=== PATIENT | female | born 1935 | race Caucasian/White ===

== ENCOUNTER 2022-11-28 09:30 | Outpatient (OUT) | payer MEDICARE, SELFPAY ==
[2022-11-28 10:10] LABS: Basophils Percent Auto 0.3 % (0.2-2.0); Eosinophils Absolute Auto 0.2 10^3/uL (0.0-0.7); Eosinophils Percent Auto 2.8 % (0.9-7.0); Hematocrit 35.9 % (36.0-48.0); Hemoglobin 11.9 g/dL (12.0-16.0); Immature Granulocytes Abs Auto 0.02 10^3/uL (0.00-0.03); Immature Granulocytes Pct Auto 0.3 % (0.0-0.5); Lymphocytes Absolute Auto 1.3 10^3/uL (1.2-3.8); Lymphocytes Percent Auto 17.8 % (20.5-60.0); Mean Corpuscular HGB Conc 33.1 g/dL (29.9-35.2); Mean Corpuscular Hemoglobin 30.7 pg (26.7-34.0); Mean Corpuscular Volume 92.8 fL (81.0-99.0); Monocytes Absolute Auto 0.5 10^3/uL (0.3-0.8); Monocytes Percent Auto 6.9 % (1.7-12.0); Neutrophils Absolute Auto 5.1 10^3/uL (1.4-6.5); Neutrophils Percent Auto 71.9 % (43.0-75.0); Platelet Count 300 10^3/uL (150-450); Red Blood Count 3.87 10^6/uL (4.20-5.40); White Blood Count 7.1 10^3/uL (4.0-11.0)
[2022-11-28 10:28] LABS: Anion Gap 15.4; BUN Creatinine Ratio 18.1; Calcium 8.2 mg/dL (8.5-10.1); Chloride 102 mmol/L (98-107); Cholesterol 210 mg/dL (<=200); Estimated GFR (African America 60 (>=60); Estimated GFR (Non-African Ame 50 (>=60); Glucose 111 mg/dL (74-106); HDL Cholesterol 40 mg/dL (40-60); Potassium 4.4 mmol/L (3.5-5.1); Sodium 140 mmol/L (136-145); Triglycerides 170 mg/dL (<=150)
[2022-11-28 10:50] LABS: Chol HDL Ratio 5.3
== END 2022-11-28 09:31 | disposition home or self-care (01) ==
LOC: LAB 09:34
PROVIDERS: PCP Internal Medicine; Visit Provider Internal Medicine
DX: E78.00 Pure hypercholesterolemia, unspecified (principal); D51.0 Vitamin B12 deficiency anemia due to intrinsic factor deficiency; E20.0 Idiopathic hypoparathyroidism; E55.9 Vitamin D deficiency, unspecified
CPT/HCPCS: 36415; 80048; 80061; 82306; 85025

== ENCOUNTER 2023-01-08 12:49 | Outpatient (RCR) | payer MEDICARE, SELFPAY | END 2023-01-21 16:30 | disposition home or self-care (01) | LOC: PT 12:49 | PROVIDERS: PCP Internal Medicine | DX: M76.892 Other specified enthesopathies of left lower limb, excluding foot (principal); S76.019D Strain of muscle, fascia and tendon of unspecified hip, subsequent encounter | CPT/HCPCS: 97110; 97112; 97163 ==

== ENCOUNTER 2023-01-20 13:18 | Outpatient (OUT) | payer MEDICARE, SELFPAY ==
[2023-01-20 13:49] LABS: Basophils Percent Auto 0.5 % (0.2-2.0); Eosinophils Absolute Auto 0.1 10^3/uL (0.0-0.7); Eosinophils Percent Auto 1.7 % (0.9-7.0); Hematocrit 35.6 % (36.0-48.0); Hemoglobin 11.9 g/dL (12.0-16.0); Immature Granulocytes Abs Auto 0.02 10^3/uL (0.00-0.03); Immature Granulocytes Pct Auto 0.3 % (0.0-0.5); Lymphocytes Absolute Auto 1.5 10^3/uL (1.2-3.8); Lymphocytes Percent Auto 19.4 % (20.5-60.0); Mean Corpuscular HGB Conc 33.4 g/dL (29.9-35.2); Mean Corpuscular Hemoglobin 30.8 pg (26.7-34.0); Mean Corpuscular Volume 92.2 fL (81.0-99.0); Mean Platelet Volume 10.3 fL (9.5-13.5); Monocytes Absolute Auto 0.5 10^3/uL (0.3-0.8); Monocytes Percent Auto 6.3 % (1.7-12.0); Neutrophils Absolute Auto 5.5 10^3/uL (1.4-6.5); Neutrophils Percent Auto 71.8 % (43.0-75.0); Platelet Count 277 10^3/uL (150-450); Red Blood Count 3.86 10^6/uL (4.20-5.40); Red Cell Distribution Width 13.2 % (11.0-15.0); White Blood Count 7.6 10^3/uL (4.0-11.0)
[2023-01-20 13:58] LABS: Anion Gap 12.3; BUN Creatinine Ratio 28.6; Calcium 7.8 mg/dL (8.5-10.1); Carbon Dioxide 27.9 mmol/L (21.0-32.0); Chloride 104 mmol/L (98-107); Estimated GFR (African America 56 (>=60); Estimated GFR (Non-African Ame 46 (>=60); Glucose 121 mg/dL (74-106); Potassium 4.2 mmol/L (3.5-5.1); Sodium 140 mmol/L (136-145)
== END 2023-01-20 13:19 | disposition home or self-care (01) ==
LOC: LAB 13:19
PROVIDERS: PCP Internal Medicine; Visit Provider Internal Medicine
DX: D51.0 Vitamin B12 deficiency anemia due to intrinsic factor deficiency (principal)
CPT/HCPCS: 36415; 80048; 85025

== ENCOUNTER 2023-03-19 13:56 | Outpatient (REF) | payer MEDICARE, SELFPAY ==
[2023-03-19 14:24] LABS: SARS-CoV-2 Ag NEGATIVE (NEGATIVE)
[2023-03-19 15:51] LABS: SARS-CoV-2 NAA NOT DETECTED (NOT DETECTE)
== END 2023-03-19 13:57 | disposition home or self-care (01) ==
LOC: LAB 13:56
PROVIDERS: PCP Internal Medicine; Visit Provider Internal Medicine
DX: Z20.822 Contact with and (suspected) exposure to COVID-19 (principal)
CPT/HCPCS: 87635; 87811

== ENCOUNTER 2023-10-01 09:15 | Outpatient (OUT) | payer OTHER, SELFPAY ==
--- OUTSIDE RECORDS SUMMARY | 2023-10-01 09:45 | XMS_ITS | CCD ---
Author Organization [facility] Care Team Providers Care Life Skills Coach Name Role Phone Angelica Messer Primary Care Provider [phone] Wilbur Baldwin MD Unavailable [phone] Wilbur Baldwin MD Unavailable Jorge Moon MD Unavailable ARSLAN BERG Primary Care Physician Bouchra, Charlotte Y Referring Unavailable Bouchra, Charlotte Y Attending Unavailable Bouchra, Charlotte Y Admitting Unavailable Angelica Messer Primary Care Provider [phone] Wilbur Baldwin MD Unavailable Wilbur Baldwin MD Unavailable Jorge Moon MD Unavailable Arslan Berg DO E Unavailable [phone] MORENA, DR PANIAGUA Admitting Unavailable BALL, DR PANIAGUA Attending Unavailable BALL, DR PANIAGUA Primary Care Unavailable BALL, DR PANIAGUA Admitting Unavailable BALL, DR PANIAGUA Attending Unavailable BALL, DR PANIAGUA Primary Care Unavailable BALL, DR PANIAGUA Consulting Unavailable LE, EDUARDO Consulting Unavailable BALL, DR PANIAGUA Admitting Unavailable BALL, DR PANIAGUA Attending Unavailable BALL, DR PANIAGUA Primary Care Unavailable BALL, DR PANIAGUA Consulting Unavailable Morena, Arslan Unavailable Angelica Messer Primary Care Provider [phone] Wilbur Baldwin MD Unavailable [phone] Wilbur Baldwin MD Unavailable Red SMALL, Jorge Abreu Unavailable [phone] Arslan Berg DO E Unavailable Angelica Messer Primary Care Provider [phone] ANGELICA MESSER Primary Care Unavailable ANGELICA MESSER Referring Unavailable BARBARA BLACKBURN Attending Unavailable ANGELICA MESSER Primary Care Unavailable RICK MCKINNEY Referring Unavailable ANGELICA MESSER Primary Care Unavailable RICK MCKINNEY Attending Unavailable ANGELICA MESSER Primary Care Unavailable ANGELICA MESSER Primary Care Unavailable BARBARA BLACKBURN Referring Unavailable Jorge Moon MD Unavailable [phone] Arslan Berg Attending Unavailable Arslan Berg Primary Care Unavailable Arslan Berg Admitting Unavailable TROY PANTOJA Attending Unavailable Allergies Allergy Classification Reported Allergen(s) Allergy Type Date of Onset Reaction(s) Facility (14 sources) bacitracin / neomycin / polymyxin b; Translations: [bacitracin/neom ycin/polymyxin B topical] Drug Allergy 12-05-19 19 Unknown [facility] (15 sources) Formaldehyde; Translations: [formaldehyde topical] Drug Allergy 08-03-19 16 Other: See Comments [facility] (13 sources) rosuvastatin; Translations: [ROSUVASTATIN CALCIUM] Drug Allergy 10-22-19 14 Other: See Comments [facility] (14 sources) Sulfonamides (Antibiotic); Translations: [SULFA (SULFONAMIDE ANTIBIOTICS)] Propensity to adverse reactions 02-25-20 03 Hallucinating [facility] (13 sources) Quaternium; Translations: [QUATERNIUM] Drug Intolerance 10-13-19 08 Other: See Comments [facility] (2 sources) Sulfamethoxazole ; Translations: [sulfamethoxazol e] Drug Allergy unknown [facility] (2 sources) quartiam; Translations: [quartiam] Drug allergy rash [facility] (1 source) Bacitracin / Neomycin / Polymyxin B; Translations: [Neosporin] Drug Allergy [facility] (1 source) Sulfonamides (Antibiotic) Drug allergy (disorder) [facility] (11 sources) Sulfacetamide Drug Allergy 09-02-19 out of it [facility] (1 source) Sulfacetamide Drug Allergy 09-02-19 [facility] (1 source) Sulfonamides (Antibiotic) Drug allergy (disorder) 09-02-19 [facility] Medications Current Medications Medication Drug Class(es) Dates Sig (Normalized) Sig (Original) amLODIPine 5 mg oral tablet (1 source) Dihydropyridine Calcium Channel Jodie Start: 09-02-2023 take 5 mg by mouth once daily Amlodipine Active 5 MG PO Daily September 02, 2023 12:00am ascorbic acid 113 mg / copper gluconate 0.4 mg / docosahexaenoic acid 87.5 mg / eicosapentaenoic acid 163 mg / lutein 2.5 mg / tocopherol acetate 100 unt / zeaxanthin 0.5 mg / zinc oxide 17.4 mg oral capsule (9 sources) Vitamin C PreserVision AREDS 2 - as directed Orally Active azithromycin 250 mg oral tablet (3 sources) Macrolide Antimicrobial Start: 03-19-2023 Azithromycin 250 MG as directed Orally daily for 5 days Feb, Active Biotin (11 sources) biotin 5,000 mcg subl Dissolve under the tongue. 0 Active Comment on above: Dissolve under the t ongue. calcitriol 0.0005 mg oral capsule (20 sources) Vitamin D3 Analog Start: 08-30-2023 take 0.5 ug by mouth once daily Calcitriol Active 0.5 MCG PO Daily August 30, 2023 12:00am Start: 12-07-2020 End: 03-24-2023 take 1 capsule by mouth once daily calcitriol (ROCALTROL) 0.5 mcg capsule Indications: Surgical hypoparathyroidism (HCC) take 1 capsule by mouth once daily 90 capsule 3 03/24/2023 Active Start: 06-26-2017 End: 08-30-2023 take 0.5 mg by mouth twice daily Calcitriol Discontinued 0.5 MG PO Twice daily June 26, 2017 1:00am August 30, 2023 9:48am Start: 06-16-2017 calcitriol 0.5 mcg oral capsule 0.5 microgram = 1 cap(s), Oral, Daily, PRN Prophylaxis Start Date: 06/16/17 Status: Ordered Comment on above: Take 1 capsule by mo ut once daily. take 1 capsule by mo [facility] once daily Calcium (4 sources) Phosphate Binder, Calcium calcium carbonate 1500 mg oral tablet (9 sources) Start: 08-30-2023 take 600 mg by mouth twice daily Calcium Carbonate Active 600 MG PO Twice daily August 30, 2023 12:00am Start: 06-26-2017 End: 08-30-2023 take 1 tablet by mouth twice daily Calcium Carbonate (Calcium 500) 500 mg calcium (1,250 mg) Tablet Discontinued 500 MG PO Twice daily June 26, 2017 1:00am August 30, 2023 9:48am Start: 06-16-2017 calcium (as ca rbonate) 600 mg oral tablet 1,200 mg = 2 tab(s), Oral, Daily, PRN Prophylaxis Start Date: 06/16/17 Status: Ordered take 1 tablet by [facility] every twelve hours Calcium 600 MG 1 tablet with meals Orally Twice a day Active cefuroxime 250 mg oral tablet (1 source) Cephalosporin Antibacterial Start: 03-28-2023 take 1 tablet by mouth every twelve hours Cefuroxime Axetil 250 MG 1 tablet Orally every 12 hrs for 7 days Mar, Active Centrum Silver (10 sources) Centrum Silver Active cetirizine hydrochloride 10 mg oral tablet (6 sources) Histamine-1 Receptor Antagonist Start: 08-30-2023 take 10 mg by mouth once daily Cetirizine Active 10 MG PO Daily August 30, 2023 12:00am Start: 01-24-2023 take 1 tablet by [facility] every twenty-four hours Cetirizine HCl 10 MG 1 tablet Orally Once a day for 30 days Jan, Active CoQ-10 (4 sources) fluticasone propionate 0.05 mg/actuat metered dose nasal spray (6 sources) Corticosteroid Start: 08-30-2023 Fluticasone Pr opionate Active 2 SPRAY INTRANASAL Daily August 30, 2023 12:00am Start: 01-24-2023 Fluticasone Pr opionate 50 MCG/ACT 2 sprays (1 spray in each nostril) Nasally Once a day for 30 days Jan, Active Garlic preparation (11 sources) Non-Standardized Food Allergenic Extract Garlic 1,000 mg cap Take by mouth. 0 Active Comment on above: Take by mouth. glucosamine sulfate 500 mg oral capsule (12 sources) Start: 08-30-2023 take 500 mg by mouth twice daily Glucosamine Sulfate Active 500 MG PO Twice daily August 30, 2023 12:00am Start: 01-12-2019 take 1 capsule by [facility] once daily glucosamine 500 mg Cap 500 mg = 1 cap(s), Oral, Daily, Refills(s) 0 Start Date: 8/20/19 Status: Ordered take 1 capsule by mo [facility] twice daily Glucosamine 500 MG 1 capsule with a meal Orally twice a day Active levocetirizine dihydrochloride 5 mg oral tablet (1 source) Histamine-1 Receptor Antagonist Start: 07-18-2023 take 5 mg by mouth once daily Levocetirizine Active 5 MG PO Daily July 18, 2023 1:00am levothyroxine sodium 0.1 mg oral tablet (20 sources) l-Thyroxine Start: 08-30-2023 take 100 ug by mouth once daily in the morning Levothyroxine Active 100 MCG PO Every morning August 30, 2023 12:00am Start: 06-26-2017 End: 08-30-2023 take 1 tablet by mouth once daily levothyroxine (SYNTHROID) 100 mcg tablet Indications: Postsurgical hypothyroidism Take 1 tablet by mouth once daily. 90 tablet 3 03/26/2022 Active Start: 06-16-2017 take 1 tablet by sondra once daily levothyroxine 100 mcg (0.1 mg) Tab 100 microgram = 1 tab(s), Oral, Daily, Thyroid Start Date: 06/16/17 Status: Ordered Comment on above: Take 1 tablet by sondra once daily. methylPREDNISolone 4 mg oral tablet (5 sources) Corticosteroid Start: 023 Medrol 4 MG as directed Orally as directed for 6 days Nov, Active mirtazapine 30 mg oral tablet (20 sources) Start: 024 take 30 mg by mouth once daily at bedtime Mirtazapine Active 30 MG PO Daily at bedtime September 02, 2023 12:00am Start: 07-18-2023 End: 09-02-2023 take 15 mg by mouth once daily at bedtime Mirtazapine Discontinued 15 MG PO Daily at bedtime August 30, 2023 12:00am September 02, 2023 11:39am Start: 01-24-2023 take 1 tablet by sondra every twenty-four hours Mirtazapine 15 MG 1 tablet at bedtime Orally Once a day Jan, Active Start: 10-12-2021 take 1 tablet by sondra once daily at bedtime mirtazapine (REMERON) 30 mg tablet TAKE 1 TABLET BY MOUTH EVERYDAY AT BEDTIME 0 10/12/2021 Active Comment on above: TAKE 1 TABLET BY SONDRA EVERYDAY AT BEDTIME Xz-Ylb-Le-Vit O-Tslwih-Ucedkvp (Preservision Areds 2 Plus Mv) 200 mcg-15 mcg- 5 mg-1 mg capsule (1 source) Start: 08-30-2023 take 1 capsule by mouth once Zg-Heo-Cf-Vit O-Hkyjmn-Waxtoxl (Preservision Areds 2 Plus Mv) 200 mcg-15 mcg- 5 mg-1 mg capsule Active CAP PO August 30, 2023 12:00am nabumetone 750 mg oral tablet (4 sources) Nonsteroidal Anti-inflammatory Drug [facility] 3 (1 source) [facility] 3 1000 MG (9 sources) take 1 capsule by mouth once shaheen ly [facility] 3 1000 MG 1 capsule Orally Once a day Active [facility]-3 Fatty Acids (1 source) Start: 08-30-2023 take 1000 mg by mouth once daily [facility]-3 Fatty Acids Active 1000 MG PO Daily August 30, 2023 12:00am omeprazole 40 mg delayed release oral capsule (10 sources) Proton Pump Inhibitor Start: 08-30-2023 take 40 mg by mouth once daily Omeprazole Active 40 MG PO Daily August 30, 2023 12:00am Start: 11-27-2022 take 1 capsule by [facility] once daily Omeprazole 40 MG 1 capsule 30 minutes before morning meal Orally Once a day Nov, Active red yeast rice 600 mg oral capsule (14 sources) Start: 08-30-2023 take 600 mg by mouth twice daily Red Yeast Rice Active 600 MG PO Twice daily August 30, 2023 12:00am Start: 11-25-2019 take 1 capsule by mo ut twice daily Red Yeast Rice Extract 600 mg cap Take 1 capsule by mouth twice daily. 0 11/25/2019 Active Start: 01-12-2019 take 2 capsules by [facility] once daily red yeast rice 600 mg oral capsule 1,200 mg = 2 cap(s), Oral, Daily, Refills(s) 0 Start Date: 01/12/19 Status: Ordered Comment on above: Take 1 capsule by mo [facility] twice daily. Red Yeast Rice (4 sources) Red Yeast Rice A ctive Red Yeast Rice 600 MG (6 sources) take 600 mg by mouth twice daily Red Yeast Rice 600 MG as directed Orally twice a day Active rosuvastatin calcium 20 mg oral tablet (1 source) HMG-CoA Reductase Inhibitor Start: 4 take 20 mg by mouth once daily Rosuvastatin Active 20 MG PO Daily September 02, 2023 12:00am traZODone hydrochloride 50 mg oral tablet (2 sources) Serotonin Reuptake Inhibitor Start: 3 take 1 tablet by mouth at bedtime traZODone HCl 50 MG 1 tablet Orally at bedtime for 30 days Nov, Active Vitamin C 250 mg oral tablet, chewable (1 source) Start: 8 take 2 tablets by mouth once daily as needed Vitamin C 250 mg oral tablet, chewable 500 mg = 2 tab(s), Chewed, Daily, PRN Prophylaxis Start Date: 06/16/17 Status: Ordered Completed/Discontinued Medications Medication Drug Class(es) Dates Sig (Normalized) Sig (Original) ascorbic acid 500 mg oral tablet (12 sources) Vitamin C Start: 04-01-2017 take 1 tablet by mouth twice daily at mealtime ascorbic acid, vitamin C, (VITAMIN C) 500 mg tablet Take 1 tablet by mouth twice daily with meals. 0 04/01/2017 Active Comment on above: Take 1 tablet by sondra th twice daily with meals. besifloxacin 6 mg/ml ophthalmic suspension (1 source) Quinolone Antimicrobial Start: 06-26-2017 End: 08-30-2023 take 1 drop(s) into the eye(s) once daily Besifloxacin Discontinued 1 DROPS OPHTHALMIC Daily June 26, 2017 1:00am August 30, 2023 9:48am Calcium Carbonate / vitamin D3 (12 sources) take 1 tablet by mouth twice daily CALCIUM CARBONATE/VITAMIN D3 (CALCIUM 600 + D ORAL) Take 1 tablet by mouth twice daily. 0 Active Comment on above: Take 1 tablet by sondra th twice daily. diclofenac sodium 1 mg/ml ophthalmic solution (1 source) Nonsteroidal Anti-inflammatory Drug Start: 06-26-2017 End: 08-30-2023 take 1 drop(s) into the eye(s) once daily Diclofenac Sodium Discontinued 1 DROPS OPHTHALMIC Daily June 26, 2017 1:00am August 30, 2023 9:48am GLUC RENAE/CHONDRO RENAE A/VIT C/MN (GLUCOSAMINE 1500 COMPLEX ORAL) (12 sources) GLUC RENAE/CHONDRO REANE A/VIT C/MN (GLUCOSAMINE 1500 COMPLEX ORAL) Take 1 tablet by mouth twice daily. 0 Active Comment on above: Take 1 tablet by sondra th twice daily. montelukast 10 mg oral tablet (16 sources) Leukotriene Receptor Antagonist Start: 10-12-2021 take 1 tablet by mouth once daily at bedtime montelukast (SINGULAIR) 10 mg tablet Take 10 mg by mouth daily at bedtime. 0 10/12/2021 Active Comment on above: Take 10 mg by mouth daily at bedtime. MULTIVITS,CA,MINERA LS/IRON/FA (ONE-A-DAY WOMENS FORMULA ORAL) (12 sources) take 1 tablet by mouth once daily MULTIVITS,CA,MINE RALS/IRON/FA (ONE-A-DAY WOMENS FORMULA ORAL) Take 1 tablet by mouth once daily. 0 Active Comment on above: Take 1 tablet by sondra th once daily. omega-3 fatty acids (SUPER OMEGA-3) 1,000 mg cap (12 sources) omega-3 fatty acids (SUPER OMEGA-3) 1,000 mg cap Take 2 g by mouth twice daily. 0 Active Comment on above: Take 2 g by mouth tw ice daily. Iupmw-4-ZYU-EPA-Fis h Oil (FISH OIL) 1,000 mg (120 mg-180 mg) cap (7 sources) take 1 capsule by mouth twice daily Vroot-6-LGJ-EPA-F kennedy Oil (FISH OIL) 1,000 mg (120 mg-180 mg) cap Take 2 g by mouth twice daily. 0 Active Comment on above: Take 2 g by mouth tw ice daily. Rkwvq-7-BQI-EPA-Fis h Oil 1,000 mg (120 mg-180 mg) cap (5 sources) take 1 capsule by mouth twice daily Tszxg-8-TMA-EPA-F kennedy Oil 1,000 mg (120 mg-180 mg) cap Take 2 g by mouth twice daily. 0 Active Comment on above: Take 2 g by mouth tw ice daily. prednisoLONE acetate 10 mg/ml ophthalmic suspension (1 source) Corticosteroid Start: 06-26-2017 End: 08-30-2023 take 1 drop(s) into the eye(s) once daily Prednisolone Acetate Discontinued 1 DROPS OPHTHALMIC Daily June 26, 2017 1:00am August 30, 2023 9:48am triamcinolone acetonide 40 mg/ml injectable suspension (20 sources) Corticosteroid Start: 12-14-2022 Kenalog-40 Nov, 40 mg Start: 11-19-2020 Start: 11-19-2020 JOHNY zapata Oct, 80 mg Start: 11-08-2018 Start: 11-08-2018 JOHNY - Sherrill castillo g Oct, 40 mg ubiquinol (12 sources) COQ10, UBIQUINOL , ORAL Take by mouth. 0 Active Comment on above: Take by mouth. vit C/E/Zn/coppr/lutein/zeax an (PRESERVISION AREDS-2 ORAL) (4 sources) vit C/E/Zn/coppr/lutein/zeax an (PRESERVISION AREDS-2 ORAL) Take by mouth. 0 Active Comment on above: Take by mouth. WALKER ROLLATOR SEAT WITH 6 WHEELS - RED (3 sources) Start: 11-20-2022 WALKER ROLLATOR SEAT WITH 6 WHEELS - RED Indications: Rupture of hip abductor tendon As needed to prevent fall 1 Each 0 11/20/2022 Active Comment on above: As needed to prevent fall Problems Active Problems Problem Classification Problem Date Documented Date Episodic/Chronic Acute bronchitis (1 source) Acute bronchitis due to other specified organisms Episodic Chronic kidney disease (14 sources) Chronic kidney disease stage 4; Translations: [Chronic kidney disease, stage 4 (severe)] Resolved: 2 Chronic Complications of surgical procedures or medical care (20 sources) Post-surgical hypoparathyroidism; Translations: [Postprocedural hypoparathyroidism] Onset: 9 Chronic Deficiency and other anemia (3 sources) Vitamin B12 deficiency anemia due to intrinsic factor deficiency; Translations: [VITAMIN B12 DEF ANEMIA DUE IF DEF] Onset: 2 Episodic Deficiency and other anemia (15 sources) Pernicious anemia; Translations: [Vitamin B12 deficiency anemia due to intrinsic factor deficiency] 08-30-2023 Episodic Disorders of lipid metabolism (20 sources) Hypercholesterolemia; Translations: [Pure hypercholesterolemia, unspecified] Onset: 4 Chronic Esophageal disorders (15 sources) Gastro-esophageal reflux disease with esophagitis; Translations: [Gastroesophageal reflux disease with esophagitis without hemorrhage] 08-30-2023 Chronic Essential hypertension (1 source) Essential (primary) hypertension; Translations: [Essential (primary) hypertension] Onset: 4 Chronic Heart valve disorders (2 sources) Cardiac murmur, unspecified; Translations: [CARDIAC MURMUR UNSPECIFIED] Onset: 3 Episodic Immunizations and screening for infectious disease (4 sources) Vaccination given; Translations: [Encounter for immunization] Episodic Malaise and fatigue (19 sources) Other fatigue; Translations: [Fatigue] Onset: 2 Episodic Miscellaneous mental health disorders (20 sources) Insomnia disorder related to another mental disorder; Translations: [Insomnia due to other mental disorder] Chronic Mood disorders (20 sources) Moderate recurrent major depression; Translations: [Major depressive disorder, recurrent, moderate] Chronic Nutritional deficiencies (11 sources) Vitamin D deficiency; Translations: [Vitamin D deficiency, unspecified] Chronic Osteoarthritis (20 sources) Osteoarthritis of left knee joint; Translations: [Unilateral primary osteoarthritis, left knee] Onset: 6 05-31-2015 Chronic Other circulatory disease (3 sources) Elevated blood-pressure reading, without diagnosis of hypertension; Translations: [Elevated blood pressure reading without diagnosis of hypertension] Episodic Other circulatory disease (1 source) Elevated blood-pressure reading without diagnosis of hypertension; Translations: [Elevated blood-pressure reading, without diagnosis of hypertension] 08-30-2023 Episodic Other connective tissue disease (2 sources) Presence of left artificial hip joint; Translations: [PRESENCE LEFT ARTIFICIAL HIP JOINT] Onset: 2 Chronic Other connective tissue disease (10 sources) History of total hip arthroplasty; Translations: [Presence of left artificial hip joint] Chronic Other connective tissue disease (10 sources) History of left hip replacement; Translations: [Presence of left artificial hip joint] Chronic Other connective tissue disease (10 sources) Trochanteric bursitis of left hip; Translations: [Trochanteric bursitis, left hip] Episodic Other diseases of veins and lymphatics (4 sources) Peripheral venous insufficiency; Translations: [Venous insufficiency (chronic) (peripheral)] Episodic Other endocrine disorders (11 sources) Idiopathic hypoparathyroidism; Translations: [Idiopathic hypoparathyroidism] 08-30-2023 Chronic Other endocrine disorders (2 sources) Idiopathic hypoparathyroidism Chronic Other endocrine disorders (1 source) Hypoparathyroidism; Translations: [Hypoparathyroidism, unspecified] 08-30-2023 Chronic Other endocrine disorders (1 source) Hypoparathyroidism, unspecified; Translations: [Hypoparathyroidism] 09-02-2023 Chronic Other fractures (1 source) Closed fracture of medial wall of acetabulum; Translations: [Nondisplaced fracture of medial wall of left acetabulum, subsequent encounter for fracture with routine healing] Episodic Other gastrointestinal disorders (1 source) Altered bowel function; Translations: [Other specified symptoms and signs involving the digestive system and abdomen] 06-27-2017 Episodic Other lower respiratory disease (5 sources) Other forms of dyspnea; Translations: [OTHER FORMS OF DYSPNEA] Onset: 3 Episodic Other nervous system disorders (1 source) Aphasia; Translations: [Aphasia] Onset: 4 Chronic Other nervous system disorders (11 sources) Antalgic gait; Translations: [Other abnormalities of gait and mobility] 08-30-2023 Episodic Other nervous system disorders (5 sources) Abnormal gait; Translations: [Unspecified abnormalities of gait and mobility] Episodic Other non-traumatic joint disorders (4 sources) Pain in left hip; Translations: [PAIN IN LEFT HIP] Onset: 2 Episodic Other non-traumatic joint disorders (14 sources) Arthralgia of the pelvic region and thigh; Translations: [Pain in left hip] Episodic Other upper respiratory disease (4 sources) Chronic rhinitis; Translations: [Chronic rhinitis] Chronic Other upper respiratory disease (6 sources) Vasomotor rhinitis; Translations: [Vasomotor rhinitis] 08-30-2023 Chronic Other upper respiratory disease (1 source) Vasomotor rhinitis Chronic Other upper respiratory infections (5 sources) Acute maxillary sinusitis; Translations: [Acute maxillary sinusitis, unspecified] Episodic Skin and subcutaneous tissue infections (10 sources) Cellulitis of hand; Translations: [Cellulitis of hand] Episodic Spondylosis; intervertebral disc disorders; other back problems (20 sources) Lumbar spondylosis; Translations: [Spondylosis without myelopathy or radiculopathy, lumbar region] Chronic Sprains and strains (1 source) Strain of muscle, fascia and tendon of unspecified hip, initial encounter; Translations: [Sprains and strains of unspecified site of hip and thigh] Episodic Superficial injury; contusion (10 sources) Abrasion and/or friction burn of hand without infection; Translations: [Cat scratch of hand] Episodic Thyroid disorders (20 sources) Autoimmune thyroiditis; 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] Onset: 2 Chronic Thyroid disorders (2 sources) Thyroid dysfunction; Translations: [Disorder of thyroid gland] 12-26-2011 Episodic Transient cerebral ischemia (1 source) Transient cerebral ischemic attack, unspecified; Translations: [Transient cerebral ischemic attack, unspecified] Onset: 4 Chronic Past or Other Problems Problem Classification Problem Date Documented Da te Episodic/Chronic Allergic reactions (12 sources) Contact dermatitis; Translations: [Unspecified contact dermatitis, unspecified cause] Onset: 02-16-2008 02-16-2008 Episodic Chronic kidney disease (3 sources) Chronic kidney disease Esophageal disorders (6 sources) Esophageal disorders; Translations: [Gastro-esophageal reflux disease with esophagitis, without bleeding] Joint disorders and dislocations; trauma-related (12 sources) Tear of medial meniscus of knee; Translations: [Tear of medial cartilage or meniscus of knee, current] Onset: 11-20-2011 11-20-2011 Episodic Nutritional deficiencies (12 sources) Cobalamin deficiency; Translations: [Deficiency of other specified B group vitamins] Onset: 12-04-2017 12-04-2017 Episodic Other aftercare (12 sources) Patient encounter status; Translations: [Encounter for therapeutic drug level monitoring] Onset: 03-19-2017 03-19-2017 Episodic Other connective tissue disease (1 source) Trochanteric bursitis, left hip; Translations: [TROCHANTERIC BURSITIS LEFT HIP] Onset: 03-04-2022 Episodic Other nervous system disorders (1 source) Unspecified abnormalities of gait and mobility; Translations: [UNS ABNORMALITIES GAIT AND MOBILITY] Onset: 03-06-2022 Episodic Other nervous system disorders (1 source) Other abnormalities of gait and mobility; Translations: [OTHER ABNORMALITIES GAIT AND MOBILITY] Onset: 03-06-2022 Episodic Other non-traumatic joint disorders (15 sources) Hip pain; Translations: [Pain in left hip] Onset: 05-31-2015 05-31-2015 Episodic Phlebitis; thrombophlebitis and thromboembolism (4 sources) History of thromboembolism of vein; Translations: [Personal history of other venous thrombosis and embolism] Onset: 05-26-2015 Episodic Results Test Name Value Interpretation Reference Range Facility US carotid doppler BIon 05-0 US carotid doppler [facility] [place] [address] Ultrasound Report Signed Patient: Rory Castellanos MR#: [id number] : 1935 Acct:[id number] Age/Sex: 88 / F ADM Date: 09/25/23 Loc: Room: Type[facility] Attending Dr: Arslan Berg DO Ordering Provider: Arslan Berg DO Date of Service: 09/25/23 US/US carotid doppler BI: R47.01 - Aphasia Copies to: Arslan Berg DO CAROTID DUPLEX INDICATION: A aphasia, possible TIA. PROCEDURE: Color-flow duplex scanning is used to interrogate the extracranial carotid arterial system, as well as both vertebral arteries. The proximal right internal carotid artery shows a highest peak systolic velocity of 80.8 cm/s with an end-diastolic velocity of 23.6 cm/s . The mid internal carotid artery measures 99.4 cm/s peak systolic with an end-diastolic velocity of 28 cm/s . The distal segment measures 87 cm/s peak systolic with an end diastolic velocity of 25.5 cm/s . The velocities of the right common carotid artery are 162 cm/s peak systolic and 22.5 cm/s end- diastolic proximally and 95.5 cm/s peak systolic and 16.5 cm/s end-diastolic distally. The peak systolic velocity ratio of the internal to the common carotid artery is 0.61 . The right external carotid artery measures 179 cm/s peak systolic. The right vertebral artery is patent at 61.9 cm/s peak systolic and with antegrade flow. The proximal left internal carotid artery shows a highest peak systolic velocity of 109 cm/s with an end-diastolic velocity of 31.1 cm/s . The mid internal carotid artery measures 123 cm/s peak systolic with an end-diastolic velocity of 30.1 cm/s . The distal segment measures 116 cm/s peak systolic with an end diastolic velocity of 37.8 cm/s . The velocities of the left common carotid artery are 121 cm/s peak systolic and 28.7 cm/s end-diastolic proximally and 104 cm/s peak systolic and 26.1 cm/s end-diastolic distally. The peak systolic velocity ratio of the internal to the common carotid artery is 1.02 . The left external carotid artery measures 146 cm/s peak systolic. The left vertebral artery is patent at 89.5 cm/s peak systolic with antegrade flow. US/US carotid doppler BI IMPRESSION: NO HEMODYNAMICALLY SIGNIFICANT STENOSIS OF EITHER EXTRACRANIAL INTERNAL CAROTID ARTERY. 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 Impression dictated by: Oscar Patterson MD09/26/2023 9:42 AM Dictation Location: [place] [address] Tech: Radha So Transcribed By: [facility] 09/26/23941 Dictated By: Oscar Patterson MD 09/26/23941 Signed By: 09/26/23941 Normal [facility] ECG 12 lead ECGon 09-25-2023 ECG 12 lead ECG [facility] Main [place] [id number] Electrocardiograph Report Signed Patient: Rory Castellanos MR#: [id number] : 1935 Acct:[id number] Age/Sex: 88 / F ADM Date: 09/25/23 Loc: Room: Type: [facility] Attending Dr: Arslan Berg DO Ordering Provider: Arslan Berg DO Date of Service: 09/25/2307/19/1322 ECG/ECG 12 lead ECG: R47.01 - Aphasia Copies to: Test Reason : Blood Pressure : / mmHG Vent. Rate : 077 BPM Atrial Rate : 077 BPM P-R Int : 176 ms QRS Dur : 082 ms QT Int : 392 ms P-R-T Axes : 078 -24 064 degrees QTc Int : 443 ms Normal sinus rhythm with sinus arrhythmia Normal ECG When compared with ECG of 26-FEB-2014 10:22, No significant change was found Confirmed by [facility] Doran ([id number]) on 09/25/2023 4:15:30 PM Referred By: Electronically Signed By:JJ FRANCIS MD FACC Transcribed By: MUS Signed By Jj Francis MD, FACC 09/25/23 1616 Normal [facility] ECH echo transthoracicon [facility] echo transthoracic [facility] Main [address] [address] Echocardiogram Signed Patient: Rory Castellanos MR#: [id number] : 1935 Acct:[id number] Age/Sex: 88 / F ADM Date: 09/25/23 Loc: UL Room: Type: [facility] Attending Dr: Arslan Berg DO Ordering Provider: Arslan Berg DO Date of Service: 09/25/2307/19/1322 ECH/ECH echo transthoracic: G45.9 - Transient cerebral ischemic attack, unspecified Copies to: DO Jj Joyner MD, [facility] Weight: 150 lb Performed By: RAMY Arguello BSA: 1.8 m2 BP: 151/74 mmHg HR: 74 Reason For Study: G45.9 - Transient cerebral ischemic attack, unspecified History: HTN, HLD Interpretation Summary Mild to moderate concentric left ventricular hypertrophy. Ejection Fraction = 60-65%. A variety of Doppler measurements indicate impaired left ventricular relaxation, which is associated with grade I/IV or mild diastolic dysfunction. No thrombus, vegetation or mass is seen. There is no prior echocardiogram noted for this patient. Procedure/Quality: A two-dimensional transthoracic echocardiogram with color flow and Doppler was performed. The study was technically good in quality. There is no prior echocardiogram noted for this patient. Left Ventricle: Mild to moderate concentric left ventricular hypertrophy. Left ventricular systolic function is normal. Ejection Fraction = 60-65%. A variety of Doppler measurements indicate impaired left ventricular relaxation, which is associated with grade I/IV or mild diastolic dysfunction. Left Atrium: The left atrium appears normal in size. The atrial septum appears normal. Right Atrium: The right atrium appears normal in size. Right Ventricle: The right ventricular size, thickness and function are normal. Aortic Valve: The aortic valve is trileaflet. The aortic valve is mildly sclerotic. Mitral Valve: The mitral valve is mildly sclerotic. Tricuspid Valve: The tricuspid valve is normal in structure. Pulmonic Valve: The pulmonic valve is not well seen, but is grossly normal. Arteries: The aortic root is normal size. Pericardium/Pleura: No pericardial effusion seen. There is no pleural effusion. IVC/Hepatic Veins: The IVC is normal in size with an inspiratory collapse of greater then 50%, suggesting normal right atrial pressure. Miscellaneous: No thrombus, vegetation or mass is seen. Measurements with Normals IVSd: 1.5 cm (0.7-1.1 cm)LVIDd: 3.5 cm (3.7-5.4 cm) LVPWd: 1.6 cm (0.7-1.1 cm)LVIDs: 2.5 cm (2.3-3.6 cm) LA dimension: 3.0 cm (2.3-4.0 cm)Ao root diam: 3.1 cm(2.0-3.6 cm) asc Aorta Diam: 3.0 cm(2.1-3.4cm) Doppler with Normals RVSP(TR): 29.0 mmHg (18-35mmHg) LV V1 max: 69.8 cm/sec (0.7-1.7m/s)MV E max gama: 74.7 cm/sec(0.8-1.3m/s) MV A max gama: 118.1 cm/sec(0.0-0.0m/s) MV E/A: 0.63 (<1.5) MMode/2D Measurements Calculations RVDd: 2.7 cm FS: 26.9 % Ao root area: LVOT diam: 2.0 cm TAPSE: 3.0 cm EDV(Teich): 7.5 cm2 LVOT area: 3.3 cm2 RV S Gama: 49.3 ml 18.3 cm/sec ESV(Teich): 22.9 ml EF(Teich): 53.5 % __ LVLd ap4: 6.3 cm SV(MOD-sp4): LAV(MOD-sp4): LA A2 area: 8.7 cm2 EDV(MOD-sp4): 26.3 ml 24.2 ml 38.3 ml LAV(MOD-sp2): LA A4 area: 12.3 cm2 LVLs ap4: 5.3 cm 19.0 ml LA length (vol): ESV(MOD-sp4): 4.6 cm 12.0 ml LA vol: 19.5 ml EF(MOD-sp4): 68.7 % LA vol index: 11.0 ml/m2 Doppler Measurements Calculations MV dec time: E/E' lat: 14.3 MV dec slope: Ao V2 max: 0.27 sec E/E' med: 10.7 143.6 cm/sec 280.0 cm/sec2 Ao max P.2 mmHg Ao mean P.6 mmHg Ao V2 mean: 100.2 cm/sec Ao V2 VTI: 29.1 cm DICK(I,D): 1.9 cm2 DICK(V,D): 1.6 cm2 __ AI max gama: LV V1 max PG: TV max P.0 mmHgTR max gama: 390.9 cm/sec 1.9 mmHg 244.9 cm/sec AI max P.1 mmHg LV V1 mean PG: TR max PG: AI dec slope: 1.2 mmHg 24.0 mmHg 300.9 cm/sec2 LV V1 mean: RAP systole: AI P1/2t: 380.5 msec 51.8 cm/sec 5.0 mmHg LV V1 VTI: 16.6 cm Measurements from QLAB BSA (): 1.8 m2 CI (): ED Mass (): LAEF (): 49.0 % 1.7 l/min/m2 119.0 grams __ SANTOS (): LAVmax (): LAVmin (): 24.0 mlPat Height (): 47.0 ml 168.0 cm 27.0 ml/m2 __ Pat Weight (): 68.0 kg QLAB Heart Model EDV ()_phl: 87.0 ml EF ()_phl: 52.0 % ED Current ()_phl: 60.0 % ESV ()_phl: 42.0 ml HR ()_phl: 66.0 BPMES Current ()_phl: 30.0 % LV Length ED ()_phl: 72.0 mmSV ()_phl: 45.0 ml ED Default ()_phl: 60.0 % LV Length ES ()_phl: 60.0 mm ES Default ()_phl: 30.0 % Transcribed By: SCV Performed At: 09/25/23 1347 Signed By: Jj Francis MD, [facility] 09/25/23 1755 Normal [facility] MR angio MR brain w/oon 05 MR angio MR brain w/o [facility] Main [place] [address] [place], [place] [id number] MRI Report Signed Patient: Rory Castellanos MR#: [id number] : 1935 Acct:[id number] Age/Sex: 88 / F ADM Date: 09/25/23 Loc: Room: Type: [facility] Attending Dr: Arslan Berg DO Copies to: Arslan Berg DO Ordering Provider: Arslan eBrg DO Date of Service: 09/25/23 MR/MR angio MR brain w/o: R47.01 - Aphasia MRI/MRA BRAIN WITHOUT CONTRAST CLINICAL DATA: Episodes of aphasia lasting approximately 20 minutes last month. Elevated cholesterol and hypertension. COMPARISON: CT brain 02/02/2016 Multiecho, multiplanar imaging of the brain was performed without contrast. 3-D nrsc-vy-iuvdep imaging of the tangirnaq of Cr was also performed. The axial source images were also reviewed. There is generalized atrophy, greatest at the cerebellum. The ventricles are within normal limits for size and position. There is mild patchy increased T2 and FLAIR signal involving the periventricular and subcortical white matter. This is probably chronic microvascular disease. There is susceptibility in the basal ganglia region and at the cerebellum on both sides correlating with physiologic calcifications on the previous CT study. There are no additional areas of abnormal signal elsewhere within the supra or infratentorial brain. There are no extra-axial collections or mass effect. No restricted diffusion is identified to suggest a recent ischemic event. There is minimal left maxillary mucosal thickening. Mastoid air cells are clear. The MRA images of the tangirnaq of Cr show a severely hypoplastic A1 segment on the right. The remaining vessels of the anterior and posterior circulation are patent. No focal stenosis or suspected thrombosis is noted. No aneurysms are identified. MR/MR angio MR brain w/o IMPRESSION: ATROPHY AND CHRONIC MICROVASCULAR DISEASE. NO ACUTE INTRACRANIAL FINDINGS. HYPOPLASTIC RIGHT A1 SEGMENT, WITHOUT OTHER SIGNIFICANT VASCULAR FINDINGS AT THE EKWOK OF CR. Impression dictated by: Leena Borges M.D.09/25/2023 4:19 PM Dictation Location: [place] [address] Transcribed By: [facility] 09/25/23 1619 Dictated By: Leena Borges MD 09/25/23 1609 Signed By: 09/25/23 1619 Normal [facility] Luis 01-06-2023 CNPN Telephone (4CQ) RORY CASTELLANOS ([id number]) 1935 F Date Time Provider Department 01/06/23 WILBUR BALDWIN 4CQ During your visit today, we recorded the following information about you: Elza Garcia 01/06/2023 9:17 AM Signed Rory Castellanos is calling Wilbur Baldwin MD today to request Results of her ultrasound of her hip. Patient asking for a return call as she is upset that the office has not contacted her. Patient states she needs follow up care and would like a call today with results and next steps for her plan of care. Patient has been identified by name and birthdate. Duration of symptoms: N/A Person calling: self Call patient at: on cell [phone] (home) [phone] (cell) Was an appointment scheduled: No Closing statement: Results or non-symptom based questions: Thank you for calling [facility], your call will be returned within the next business day. Regina Nj, ELVI 01/06/2023 3:30 PM Signed ORTHO CARE COORDINATION QUICK NOTE Patient has been identified by name and date of : yes Spoke with patient advising her ultrasound results. We discussed US result of Complete tear with retraction of the gluteus minimus tendon. Severe tendinosis of the gluteus medius tendon. Advised that physical therapy would be recommended to help strengthening the surrounding muscles. Advised no surgical intervention for this . She is looking ot do some therapy at [facility] and will contact our office with a fax number to forward this prescription to. Patient apprecative of call. Regina Verma RN Allergies As of Date: 01/06/2023 Noted Allergy Reaction QUATERNIUM 10/13/2007 14 - Other: See Comments Comments: ingredient in shampoos and hand creams severe open blisters/sores CRESTOR (ROSUVASTATIN CALCIUM) 10/21/2013 14 - Other: See Comments Comments: Sore throat and muscle symptoms per patient FORMALDEHYDE 08/03/2015 14 - Other: See Comments Comments: blisters and open sores [id number] 12/04/2018 16 - Unknown SULFA (SULFONAMIDE ANTIBIOTICS) 02/24/2003 Comments: ? per pt disoriented Date Reviewed: 11/20/2022 Reviewed by: Alea Krueger OCCA - Fully Assessed Reason for Visit: Results [95] Primary Visit Diagnosis:Tendonitis involving left hip abductors [M76.892] Other Visit Diagnosis:Rupture of hip abductor tendon [S76.019A] Order(s):CONSULT TO PHYSICAL THERAPY [9032] Order #: [id number]: 1 FUTURE Prescriptions as of 01/07/2023 - WALKER ROLLATOR SEAT WITH 6 WHEELS - RED As needed to prevent fall - vit C/E/Zn/coppr/lutein/ze axan (PRESERVISION AREDS-2 ORAL) Take by mouth. - levothyroxine (SYNTHROID) 100 mcg tablet Take 1 tablet by mouth once daily. - calcitriol (ROCALTROL) 0.5 mcg capsule Take 1 capsule by mouth once daily. - COQ10, UBIQUINOL, ORAL Take by mouth. - omega-3 fatty acids (SUPER OMEGA-3) 1,000 mg cap Take 2 g by mouth twice daily. - Bbzvu-0-MLI-EPA-Fish Oil 1,000 mg (120 mg-180 mg) cap Take 2 g by mouth twice daily. - montelukast (SINGULAIR) 10 mg tablet Take 10 mg by mouth daily at bedtime. - mirtazapine (REMERON) 30 mg tablet TAKE 1 TABLET BY MOUTH EVERYDAY AT BEDTIME - Red Yeast Rice Extract 600 mg cap Take 1 capsule by mouth twice daily. - ascorbic acid, vitamin C, (VITAMIN C) 500 mg tablet Take 1 tablet by mouth twice daily with meals. - CALCIUM CARBONATE/VITAMIN D3 (CALCIUM 600 + D ORAL) Take 1 tablet by mouth twice daily. - GLUC RENAE/CHONDRO RENAE A/VIT C/MN (GLUCOSAMINE 1500 COMPLEX ORAL) Take 1 tablet by mouth twice daily. - MULTIVITS,CA,MINERALS/ IRON/FA (ONE-A-DAY WOMENS FORMULA ORAL) Take 1 tablet by mouth once daily. 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] 09/03/2010 Tear of medial cartilage or meniscus of knee, c*11/20/2011 Pain in left hip [M25.552] 05/31/2015 Primary osteoarthritis of left knee [M17.12] 05/31/2015 Primary osteoarthritis of left hip [M16.12] 05/31/2015 OA (osteoarthritis) of hip [M16.9] 08/10/2015 Primary osteoarthritis of right hip [M16.11] 02/17/2017 Pre-op evaluation [Z01.818] 03/19/2017 Anticoagulation management encounter [Z51.81, Z*03/19/2017 Arthritis of right hip [M16.11] 03/31/2017 Vitamin B12 deficiency [E53.8] 12/04/2017 Encounter Status:Closed by REGINA VERMA on 01/07/23 [facility] HIP LTon 12-16-2022 US HIP LT * * *Final Report* * * DATE OF EXAM: Dec 16 2022 1:36PM YONY 1147 - US HIP LT / PROCEDURE REASON: Rupture of hip abductor tendon * * * * Physician Interpretation * * * * MSK_US LEFT LATERAL HIP ULTRASOUND: CLINICAL INFORMATION: History of bilateral total hip arthroplasties. Pain at the left hip. Rupture of hip abductor tendon TECHNIQUE: Díaz-scale real-time ultrasound of the lateral hip with dynamic imaging and power Doppler examination was performed. Images were saved to the permanent image archive. v2-20. COMPARISON: Left hip radiograph 11/20/2022 FINDINGS: GLUTEUS MINIMUS TENDON: Tendinosis: None Tearing: Complete tear with retraction. Power Doppler Examination: No increased signal. Osseous Changes: Normal appearance. GLUTEUS MEDIUS TENDON: Tendinosis: Severe Tearing: None. Power Doppler Examination: Severe associated hyperemia. Osseous Changes: Normal appearance. GLUTEUS MUSCULATURE: Bulk: Mild atrophy Echogenicity: Normal GREATER TROCHANTER BURSAE: No findings of bursitis. LATERAL JOINT SPACE: No significant joint effusion seen. ILIOTIBIAL BAND: Intact appearing. No snapping seen. OTHER: No significant additional sonographic findings. IMPRESSION: Complete tear with retraction of the gluteus minimus tendon. Severe tendinosis of the gluteus medius tendon. Cardiac Technologist: PSCB Transcribe Date/Time: Dec 16 2022 1:44P Dictated by : RONALD NOVAK MD This examination was interpreted and the report reviewed and electronically signed by: MEL RBIONES MD on Dec 16 2022 1:57PM EST [id number] [facility] ([id number]) 1935 F Date Time Provider Department 11/22/22 COREEN WORTHY RULTTB During your visit today, we recorded the following information about you: Coreen Worthy 11/22/2022 1:16 PM Addendum Visit Type: US MSK1 Visit Length: 45 OR 60 MINUTES Order Name/Protocol: US HIP LT; LATERAL-EVAL LT HIP ABDUCTORS INCLUDING GLUTE MIN/MED/MAX MUSCLES FOR ATROPHY, TENDINOSIS, AND/OR DISRUPTION. HX OF LT THR. Preferred Provider: N/A Comment: N/A [facility] Slot held: N/A Coreen Worthy 11/22/2022 1:41 PM Signed Called patient on 11/22/22 at 1:41 pm to schedule their MSK US exam. No answer, left VM, 1st attempt. Keaton Roach 11/22/2022 2:34 PM Signed Pt called back at 2:22, please give this pt a call back to make sure their scheduled for an appt. Coreen Worthy 11/22/2022 2:37 PM Signed PT scheduled for MSK US on 12/16/22 at 1 pm at Main. Allergies As of Date: 11/22/2022 Noted Allergy Reaction QUATERNIUM 10/13/2007 14 - Other: See Comments Comments: ingredient in shampoos and hand creams severe open blisters/sores CRESTOR (ROSUVASTATIN CALCIUM) 10/21/2013 14 - Other: See Comments Comments: Sore throat and muscle symptoms per patient FORMALDEHYDE 08/03/2015 14 - Other: See Comments Comments: blisters and open sores [id number] 12/04/2018 16 - Unknown SULFA (SULFONAMIDE ANTIBIOTICS) 02/24/2003 Comments: ? per pt disoriented Date Reviewed: 11/20/2022 Reviewed by: JEF Ledesma - Fully Assessed Reason for Visit: Appointment [186] Prescriptions as of 11/22/2022 - WALKER ROLLATOR SEAT WITH 6 WHEELS - RED As needed to prevent fall - vit C/E/Zn/coppr/lutein/ze axan (PRESERVISION AREDS-2 ORAL) Take by mouth. - levothyroxine (SYNTHROID) 100 mcg tablet Take 1 tablet by mouth once daily. - calcitriol (ROCALTROL) 0.5 mcg capsule Take 1 capsule by mouth once daily. - COQ10, UBIQUINOL, ORAL Take by mouth. - omega-3 fatty acids (SUPER OMEGA-3) 1,000 mg cap Take 2 g by mouth twice daily. - Tyuor-6-JVU-EPA-Fish Oil 1,000 mg (120 mg-180 mg) cap Take 2 g by mouth twice daily. - montelukast (SINGULAIR) 10 mg tablet Take 10 mg by mouth daily at bedtime. - mirtazapine (REMERON) 30 mg tablet TAKE 1 TABLET BY MOUTH EVERYDAY AT BEDTIME - Red Yeast Rice Extract 600 mg cap Take 1 capsule by mouth twice daily. - ascorbic acid, vitamin C, (VITAMIN C) 500 mg tablet Take 1 tablet by mouth twice daily with meals. - CALCIUM CARBONATE/VITAMIN D3 (CALCIUM 600 + D ORAL) Take 1 tablet by mouth twice daily. - GLUC RENAE/CHONDRO RENAE A/VIT C/MN (GLUCOSAMINE 1500 COMPLEX ORAL) Take 1 tablet by mouth twice daily. - MULTIVITS,CA,MINERALS/ IRON/FA (ONE-A-DAY WOMENS FORMULA ORAL) Take 1 tablet by mouth once daily. 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] 09/03/2010 Tear of medial cartilage or meniscus of knee, c*11/20/2011 Pain in left hip [M25.552] 05/31/2015 Primary osteoarthritis of left knee [M17.12] 05/31/2015 Primary osteoarthritis of left hip [M16.12] 05/31/2015 OA (osteoarthritis) of hip [M16.9] 08/10/2015 Primary osteoarthritis of right hip [M16.11] 02/17/2017 Pre-op evaluation [Z01.818] 03/19/2017 Anticoagulation management encounter [Z51.81, Z*03/19/2017 Arthritis of right hip [M16.11] 03/31/2017 Vitamin B12 deficiency [E53.8] 12/04/2017 Encounter Status:Closed by COREEN WORTHY on 11/22/22 [facility] Sathya 11-20-2022 CNOV Office Visit (MISTY ) RORY CASTELLANOS ([id number]) 1935 F Date Time Provider Department 11/20/22 2:10 PM RICK MCKINNEY During your visit today, we recorded the following information about you: Rick Mckinney PA-C 11/20/2022 2:41 PM Signed Ortho Hip Follow Up Note Narrative Referring Provider: No referring provider defined for this encounter. PCP: Angelica Messer MD = IMPRESSION/PLAN: Impressions indicate: = 87 year old s/p Left Total Hip Replacement completed on 08/10/2015. Patient contacted this office approximately 1 year ago to the date complaining of left hip pain. She had fallen sometime earlier and sustained a left acetabular medial wall fracture that has gone on to heal without evidence of loosening of her left femoral acetabular component. She presents today complaining of limp and lateral hip pain on that left side. Recent Surgeries this specialty 03/31/2017 (5yr) ARTHROPLASTY REPLACE JOINT TOTAL HIP (Right) Wilbur Baldwin MD; Rick Metz III - Posted 08/10/2015 (7yr) ARTHROPLASTY REPLACE JOINT TOTAL HIP (Left) Wilbur Baldwin MD - Posted 12/23/2011 (10yr) ARTHROSCOPY KNEE MENISCECTOMY MEDIAL OR LATERAL (Left) Troy Boo MD - Posted PAIN EVALUATION 11/18/2022 0600 Pain Level: 5 Pain Location: Hip-Left Description: Aching IMPRESSION: Overt left hip abductor insufficiency/weakness Routine healing of left acetabular periprosthetic fracture without evidence of loosening of her left hip component. Trendelenburg gait secondary to disruption of abductor tendon. PLAN: Ultrasound of the left hip abductors ordered to discern integrity of same as it relates to ordering PT in the future. Rollator walker order was provided. PT in the future to help strengthen the lateral hip abductors. Lengthy discussion with the patient and her daughter today as to the permanent nature of this issue and there is no surgical solution for same. Patient Reassurance: Patient reassured and supported. All questions answered. 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 STATUS POST: BMI: There is no height or weight on file to calculate BMI. ED Visits AND Hospitalizations - Last 180 days None Patient rates their condition as worsening. Does the patient still experience pain? Onset: yes. Location: Left hip: Greater trochanter. Frequency: constantly. Pain scale: 5 and 6. Pain character: ache. Relieving factors: Rest, Pain medication, and Walker. Aggravating factors: Prolonged standing and Walking long distances. Post Op discharge patient location: in home. Functional Assessment is as follows: completed course of therapy and completed home PT. Functional difficulties: None. Pain Medication: Non-narcotic Physical Therapy Data 08/11/2015 08/11/2015 Therapist that will oversee plan of care Neela Irby Michelle EXAM: POST OP HIP LEFT POST-OPERATIVE HIP SKIN: Appropriate postop appearance. Range of Motion: Painful Neurovascular Status: Sensation Intact and Moves foot and ankle up AND down Gait: Trendelenberg to the left LEFT HIP EXAM: Palpable defect posterior greater troches at abductor insertion. Marked abductor weakness on exam today. IMAGING: X-ray Hips: Post op Remote medial acetabular wall fracture with good callus and no evidence of nonunion. No evidence of of acetabular component loosening when compared to images from October 2021. Provider: Rick Mckinney PA-C Allergies As of Date: 11/20/2022 Noted Allergy Reaction QUATERNIUM 10/13/2007 14 - Other: See Comments Comments: ingredient in shampoos and hand creams severe open blisters/sores CRESTOR (ROSUVASTATIN CALCIUM) 10/21/2013 14 - Other: See Comments Comments: Sore throat and muscle symptoms per patient FORMALDEHYDE 08/03/2015 14 - Other: See Comments Comments: blisters and open sores [id number] 12/04/2018 16 - Unknown SULFA (SULFONAMIDE ANTIBIOTICS) 02/24/2003 Comments: ? per pt disoriented Date Reviewed: 11/20/2022 Reviewed by: JEF Ledesma - Fully Assessed Primary Visit Diagnosis:Rupture of hip abductor tendon [S76.019A] Other Visit Diagnoses:Ga (more content not included)... Normal [facility] XR HIP 3V PELV+ AP/LAT LTon 11-20-2022 XR HIP 3V PELV+ AP/LAT LT * * *Final Report* * * DATE OF EXAM: Nov 20 2022 1:51PM AFR 5351 - XR HIP 3V PELV+ AP/LAT LT / PROCEDURE REASON: Primary osteoarthritis of left hip * * * * Physician Interpretation * * * * REASON FOR STUDY: Primary osteoarthritis of left hip . PATIENT/TECHNOLOGIST-P ROVIDED HISTORY: LEFT HIP PAIN TECHNIQUE: XR HIP 3V PELV+ AP/LAT LT Laterality: LEFT Number of different views (projections): 3 COMPARISON: 11/19/2021 and 03/31/2018 RESULT: LEFT hip: Status post total hip arthroplasty. The hardware appears intact without radiographic evidence of loosening. Periostitis around the medial acetabular rim likely postoperative in nature and similar compared to prior study. Symmetric, moderate degenerative changes in the bilateral sacroiliac joints are noted with marginal osteophytes and some joint space narrowing. There is no acute fracture or dislocation. Incidental note is made of vascular calcifications. Limited assessment of the contralateral hip demonstrates a total hip arthroplasty. No other significant abnormality is seen. - IMPRESSION: Postoperative findings without hardware complication or acute osseous abnormality. Cardiac Technologist: TYSON Transcribe Date/Time: Nov 20 2022 4:12P Dictated by : NOMAN HILL MD This examination was interpreted and the report reviewed and electronically signed by: NOMAN HILL MD on Nov 20 2022 4:13PM EST [id number] Normal [facility] 25(OH)D3 SerPl-ncon 2022 25-hydroxyvitamin D3 [Mass/Vol] 47.1 ng/mL Normal 31.0-80.0 [facility] Comment on above: Order Comment: Speci men Type: BLOOD SPECIMEN Ordering Facility: [facility] Address: [address] [place], [place] [address] Result Comment: Clas sification of 25 [place] Vitamin D status: Deficiency/Insufficiency: < or = 30 ng/ml. Sufficiency/Optimal Levels: 31-80 ng/mL Toxicity: > 100 ng/mL. Test performed by chemiluminescent immunoassay. Performed By: #### 1 989-3 #### [facility] CLIA [id number] [address] [place], [place] [address] [id number] [facility] CNOVon 11-12-2022 CNOV Office Visit (ENDOLN ) RORY CASTELLANOS ([id number]) 1935 F Date Time Provider Department 11/12/22 10:00 AM BARBARA BLACKBURN PAULIE ENDOLN During your visit today, we recorded the following information about you: Pulse Blood pressure Weight 72/minute 134/62 68.9 kg Barbara Blackburn MD 11/12/2022 12:17 PM Signed 87yo WF with h/o partial thyroidectomy 1961 c/b post-op hypoparathyroidism and hypothyroidism, here for f/u Current Regimen: LT4 100mcg daily except half a tablet on Friday and skips Friday Calcitriol 0.5mcg daily Calcium Carbonate/Vitamin D 600mg/400u BID Takes LT4 inappropriately/incons istently: No Energy loss: lower overall, hip problems limit her Wt change: lost 10 lbs since a year ago BM irregularities: No Temp intolerance: No Sweats: No Skin changes: No Hair changes: No Cramps: No Tremor: No Palpitations: No Numbness/tingling: No Exposure to contrast, kelp, supplements, MVI, Biotin: No All other Review of Systems reviewed and are negative. 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 Syncope Early 2011, isolated incident, no f/u Unspecified hypothyroidism Hypothyroidism s/p thyroidectomy for goiter 1960 FAMILY HISTORY Problem Relation Age of Onset Cancer Daughter Ovarian cancer Social History Tobacco Use Smoking status: Never Smokeless tobacco: Never Substance Use Topics Alcohol use: No Comment: once in a while vit C/E/Zn/coppr/lutein/ze axan (PRESERVISION AREDS-2 ORAL), Take by mouth., Disp: , Rfl: levothyroxine (SYNTHROID) 100 mcg tablet, Take 1 tablet by mouth once daily., Disp: 90 tablet, Rfl: 3 calcitriol (ROCALTROL) 0.5 mcg capsule, Take 1 capsule by mouth once daily., Disp: 90 capsule, Rfl: 3 COQ10, UBIQUINOL, ORAL, Take by mouth., Disp: , Rfl: Bzzhr-1-OWN-EPA-Fish Oil 1,000 mg (120 mg-180 mg) cap, Take 2 g by mouth twice daily., Disp: , Rfl: Red Yeast Rice Extract 600 mg cap, Take 1 capsule by mouth twice daily., Disp: , Rfl: CALCIUM CARBONATE/VITAMIN D3 (CALCIUM 600 + D ORAL), Take 1 tablet by mouth twice daily., Disp: , Rfl: GLUC RENAE/CHONDRO RENAE A/VIT C/MN (GLUCOSAMINE 1500 COMPLEX ORAL), Take 1 tablet by mouth twice daily., Disp: , Rfl: MULTIVITS,CA,MINERALS/ IRON/FA (ONE-A-DAY WOMENS FORMULA ORAL), Take 1 tablet by mouth once daily., Disp: , Rfl: PE: BP 134/62 Pulse 72 Wt 68.9 kg (152 lb) BMI 24.55 kg/m? Last 3 Encounter Wt Readings: Date: Wt: 11/12/2022 68.9 kg (152 lb) 11/06/2021 69.4 kg (153 lb) 12/04/2018 71.9 kg (158 lb 9.6 oz) Gen - NAD, comfortable, pleasant Neck - No visible neck swelling, No tender, small left palpable thyroid tissue, +thyroidectomy scar intact/clean CVS - RRR no murmurs Skin - normal texture, normal temperature MSK - 5/5 UE proximal muscle strength bilaterally Neuro - normal relaxation phase of bilateral UE reflexes, No hand tremor Component Latest Ref Rng AND Units 11/06/2021 Albumin 3.9 - 4.9 g/dL 4.1 Calcium 8.5 - 10.2 mg/dL 8.3 (L) Phosphorus 2.7 - 4.8 mg/dL 4.6 Glucose 74 - 99 mg/dL 80 BUN 7 - 21 mg/dL 28 (H) Creatinine 0.58 - 0.96 mg/dL 1.11 (H) Sodium 136 - 144 mmol/L 141 Potassium 3.7 - 5.1 mmol/L 4.5 Chloride 97 - 105 mmol/L 102 CO2 22 - 30 mmol/L 27 Anion Gap 9 - 18 mmol/L 12 eGFR >=60 mL/min/1.73mA? 49 (L) TSH 0.270 - 4.200 mIU/L 1.400 Vitamin D 25 Hydroxy 31.0 - 80.0 ng/mL 47.3 [facility] 06/08/21 - Ca 7.8, Cr 1.14, GFR 45 11/25/20 - TSH 1.604, Ca 7.8, Alb 3.9, Cr 1.13, GFR 46 07/28/20 - Ca 8.0, Cr 1.17, GFR 44 Rory was seen today for thyroid problem. Diagnoses and all orders for this visit: Surgical hypoparathyroidism -calcium low-normal and stable for years -check RFP and Vitamin D levels today to monitor control - RENAL FUNCTION PANEL; Future - VITAMIN D 25 HYDROXY; Future Postsurgical hypothyroidism -clinically euthyroid -check TSH today to monitor control - TSH BLD; Future F/u 1 year The assessment and benefits/risks of the plan were discussed with the patient who expressed understanding and was agreeable to that which is noted above. All documentation from previous visit was copied and pasted, documentation has been reviewed and edited as necessary for today's visit. Referring Provider: ANGELICA MESSER [[id number]] Allergies As of Date: 11/12/2022 Noted Allergy Reaction QUATERNIUM 10/13/2007 14 - Other: See Comments Comments: ingredient in shampoos and hand creams severe open blisters/sores CRESTOR (ROSUVASTATIN CALCIUM) 10/21/2013 14 - Other: See Comments Comments: Sore throat and muscle symptoms per patient FORMALDEHYDE 08/03/2015 14 - Other: See Comments Comments: blisters and open sores [id number] 12/04/2018 16 - Unknown SULFA (SULFONAMI (more content not included)... Normal [facility] Renal function 2000 panelon 11-12-2022 Albumin [Mass/Vol] 4.2 g/dL Normal 3.9-4.9 [facility] Comment on above: Order Comment: Speci mary Type: BLOOD SPECIMEN Ordering Facility: [facility] Address: [address] [place] [address] Performed By: #### 2 4362-6, 3016-3 #### [facility] CLIA [id number] [address] [place] [address] [place] Anion gap [Moles/Vol] 12 mmol/L Normal 9-18 [facility] Comment on above: Order Comment: Michael hernandez Type: BLOOD SPECIMEN Ordering Facility: [facility] Address: [address] [place] [address] Performed By: #### 2 4362-6, 3016-3 #### [facility] CLIA [id number] [address] [place] [address] [place] Calcium [Mass/Vol] 9.0 mg/dL Normal 8.5-10.2 [facility] Comment on above: Order Comment: Speci men Type: BLOOD SPECIMEN Ordering Facility: [facility] Address: [address] [place] [address] Performed By: #### 2 4362-6, 3016-3 #### [facility] CLIA [id number] [address] [place] [address] [place] Chloride [Moles/Vol] 102 mmol/L Normal 97-105 [facility] Comment on above: Order Comment: Speci men Type: BLOOD SPECIMEN Ordering Facility: [facility] Address: [address] [place] [address] Performed By: #### 2 4362-6, 3015-3 #### [facility] CLIA [id number] [facility] [place] [address] [place] CO2 [Moles/Vol] 26 mmol/L Normal 22-30 [facility] Comment on above: Order Comment: Speci men Type: BLOOD SPECIMEN Ordering Facility: [facility] Address: [address] [place] [address] Performed By: #### 2 4362-6, 3015-07 #### [facility] CLIA [id number] [address] [place] [address] [place] Creatinine [Mass/Vol] 1.01 mg/dL High 0.58-0.96 [facility] Comment on above: Order Comment: Speci men Type: BLOOD SPECIMEN Ordering Facility: [facility] Address: [address] [place] [address] Performed By: #### 2 4362-6, 3015-07 #### [facility] CLIA [id number] [address] [place] [address] OF [place] ESTIMATED GLOMERULAR FILTRATION RATE 54 mL/min/1.73m??? Low >=60 [facility] Comment on above: Order Comment: Speci men Type: BLOOD SPECIMEN Ordering Facility: [facility] Address: [address] [place] [address] Result Comment: Amanda mated Glomerular Filtration Rate (eGFR) is calculated using the 2020 CKD-EPI creatinine equation. This equation utilizes serum creatinine, sex, and age as parameters. The creatinine assay has traceable calibration to isotope dilution-mass spectrometry. Refer to KDIGO guidelines for clinical interpretation. In patients with unstable renal function, e.g. those with acute kidney injury, the eGFR may not accurately reflect actual GFR. Performed By: #### 2 4362-6, 3015-3 #### [facility] CLIA [id number] [address] [place] [address] [place] Glucose [Mass/Vol] 82 mg/dL Normal 74-99 [facility] Comment on above: Order Comment: Michael hernandez Type: BLOOD SPECIMEN Ordering Facility: [facility] Address: [address] [place] [address] Result Comment: The [place] Diabetes Association (ADA) provides guidance for cutoff values for fasting glucose and random glucose. The ADA defines fasting as no caloric intake for at least 8 hours. Fasting plasma glucose results between 100 to 125 mg/dL indicate increased risk for diabetes (prediabetes). Fasting plasma glucose results greater than or equal to 126 mg/dL meet the criteria for diagnosis of diabetes. In the absence of unequivocal hyperglycemia, results should be confirmed by repeat testing. In a patient with classic symptoms of hyperglycemia or hyperglycemic crisis, random plasma glucose results greater than or equal to 200 mg/dL meet the criteria for diagnosis of diabetes. Reference: Standards of Medical Care in Diabetes 2016, [place] [employer] Association. Diabetes Care. 2016.39(Suppl 1). Performed By: #### 2 4362-6, 6-3 #### [facility] CLIA [id number] [address] [place] [address] [place] Phosphate [Mass/Vol] 3.9 mg/dL Normal 2.7-4.8 [facility] Comment on above: Order Comment: Michael hernandez Type: BLOOD SPECIMEN Ordering Facility: [facility] Address: [address] [place], [place] [id number] Performed By: #### 2 4362-6, 6-3 #### [facility] CLIA [id number] [address] [place] [address] [place] Potassium [Moles/Vol] 4.2 mmol/L Normal 3.7-5.1 [facility] Comment on above: Order Comment: Michael hernandez Type: BLOOD SPECIMEN Ordering Facility: [facility] Address: [address] [place] [address] Performed By: #### 2 4362-6, 6-3 #### [facility] CLIA [id number] [address] [place] [address] [place] Sodium [Moles/Vol] 140 mmol/L Normal 136-144 [facility] Comment on above: Order Comment: Speci men Type: BLOOD SPECIMEN Ordering Facility: [facility] Address: [address] [place] [address] Performed By: #### 2 4362-6, 3016-3 #### [facility] CLIA [id number] [address] [place] [address] [place] Urea nitrogen [Mass/Vol] 19 mg/dL Normal 7-21 [facility] Comment on above: Order Comment: Speci men Type: BLOOD SPECIMEN Ordering Facility: [facility] Address: [address] [place] [address] Performed By: #### 2 4362-6, 3016-3 #### [facility] CLIA [id number] [address] [place] [address] [place] TSH SerPl-aCncon 11-12-2022 TSH Qn 0.960 m[IU]/L Normal 0.270-4.200 [facility] Comment on above: Order Comment: Speci men Type: BLOOD SPECIMEN Ordering Facility: [facility] Address: [address] [place] [address] Performed By: #### 2 4362-6, 3016-3 #### [facility] IA [id number] [address] [place] [address] [place] CNPAnnie 10-15-2022 CNPN Telephone (MISTY) RORY CASTELLANOS ([id number]) 1935 F Date Time Provider Department 10/15/22 WILBUR BALDWIN During your visit today, we recorded the following information about you: Rosa Barton RN 10/15/2022 8:32 AM Signed The pt is calling. You did a Left TKR about 5 years ago but for the past year she has been dealing with Left hip pain and clicking when she walks she also feels a lump on the hip. She is requesting an appt but the soonest they can get her in is in January. Are you able to fit her in sooner? Any day and any time works for her. You may leave a message on her answering machine at the number listed in contacts attached to this message. JEF Ledesma 10/15/2022 9:42 AM Signed Called patient made her an appointment with Bill 11/20/2022 at 210 pm new xray are needed before Allergies As of Date: 10/15/2022 Noted Allergy Reaction QUATERNIUM 10/13/2007 14 - Other: See Comments Comments: ingredient in shampoos and hand creams severe open blisters/sores CRESTOR (ROSUVASTATIN CALCIUM) 10/21/2013 14 - Other: See Comments Comments: Sore throat and muscle symptoms per patient FORMALDEHYDE 08/03/2015 14 - Other: See Comments Comments: blisters and open sores [id number] 12/04/2018 16 - Unknown SULFA (SULFONAMIDE ANTIBIOTICS) 02/24/2003 Comments: ? per pt disoriented Date Reviewed: 11/06/2021 Reviewed by: Linwood Uriostegui MA - Fully Assessed Reason for Visit: left hip pain and clicking [Other] Prescriptions as of 10/15/2022 - levothyroxine (SYNTHROID) 100 mcg tablet Take 1 tablet by mouth once daily. - calcitriol (ROCALTROL) 0.5 mcg capsule Take 1 capsule by mouth once daily. - Garlic 1,000 mg cap Take by mouth. - COQ10, UBIQUINOL, ORAL Take by mouth. - biotin 5,000 mcg subl Dissolve under the tongue. - omega-3 fatty acids (SUPER OMEGA-3) 1,000 mg cap Take 2 g by mouth twice daily. - Isvxy-9-LXY-EPA-Fish Oil (FISH OIL) 1,000 mg (120 mg-180 mg) cap Take 2 g by mouth twice daily. - montelukast (SINGULAIR) 10 mg tablet Take 10 mg by mouth daily at bedtime. - mirtazapine (REMERON) 30 mg tablet TAKE 1 TABLET BY MOUTH EVERYDAY AT BEDTIME - Red Yeast Rice Extract 600 mg cap Take 1 capsule by mouth twice daily. - ascorbic acid, vitamin C, (VITAMIN C) 500 mg tablet Take 1 tablet by mouth twice daily with meals. - CALCIUM CARBONATE/VITAMIN D3 (CALCIUM 600 + D ORAL) Take 1 tablet by mouth twice daily. - GLUC RENAE/CHONDRO RENAE A/VIT C/MN (GLUCOSAMINE 1500 COMPLEX ORAL) Take 1 tablet by mouth twice daily. - MULTIVITS,CA,MINERALS/ IRON/FA (ONE-A-DAY WOMENS FORMULA ORAL) Take 1 tablet by mouth once daily. Problem List As Of Date 10/15/2022 Noted Resolved DERMATITIS NOS [L25.9] 02/16/2008 POSTSURGICAL HYPOTHYROID [E89.0] 10/31/2008 Hypoparathyroidism [E20.9] 10/31/2008 09/03/2010 Surgical hypoparathyroidism [E89.2] 09/03/2010 Tear of medial cartilage or meniscus of knee, c*11/20/2011 Pain in left hip [M25.552] 05/31/2015 Primary osteoarthritis of left knee [M17.12] 05/31/2015 Primary osteoarthritis of left hip [M16.12] 05/31/2015 OA (osteoarthritis) of hip [M16.9] 08/10/2015 Primary osteoarthritis of right hip [M16.11] 02/17/2017 Pre-op evaluation [Z01.818] 03/19/2017 Anticoagulation management encounter [Z51.81, Z*03/19/2017 Arthritis of right hip [M16.11] 03/31/2017 Vitamin B12 deficiency [E53.8] 12/04/2017 Encounter Status:Closed by ALEA KRUEGER on 10/15/22 Normal [facility] ECHOCARDIO M/2D COMPLETEon 0 08-01-2022 ECHOCARDIO M/2D COMPLETE Patient: EMANUELRORY Exam Date: 08/01/2022 : 1935 Gender:F Ordering : DR ARSLAN BERG D.O. Admission #: [id number] Family : Order #: [id number] CLICK HERE TO VIEW EXAM ECHOCARDIOGRAM REPORT PROCEDURE: CARDIO PULMONARY ECHOCARDIO M/2D COMP INDICATIONS: BRAXTON, Murmur COMPARISON: None. DESCRIPTION: COMPLETE ECHOCARDIOGRAM Real-time transthoracic echocardiography with 2D, M-mode, spectral and color flow Doppler performed. QUALITY: Technical quality was good. LEFT VENTRICLE: Normal chamber size. Mild concentric left ventricular hypertrophy. Global left ventricular systolic function is normal. LV EF: Visual estimation of left ventricular ejection fraction is 55-60% DIASTOLIC: Normal diastolic function. ATRIAL SEPTUM: LEFT ATRIUM: Normal chamber size. RIGHT ATRIUM: Mild dilatation. RIGHT VENTRICLE: Normal chamber size. Normal right ventricular systolic function. TRICUSPID VALVE: Normal mobility and thickness. No stenosis with mild regurgitation. No evidence of pulmonary hypertension. RVSP 28 mmHg MITRAL VALVE: Normal mobility and thickness. No mitral valve prolapse. No evidence of mitral valve stenosis. There is no mitral annular calcification. Trivial mitral regurgitation. AORTIC VALVE: Normal trileaflet appearance. No visible sclerosis. Normal leaflet mobility. No evidence of aortic valve stenosis. Mild aortic regurgitation. AORTIC ROOT: Normal diameter and appearance. PULMONIC VALVE: Normal thickness and mobility. No stenosis. Mild regurgitation. PERICARDIUM: No evidence of pericardial effusion. Fat pad is seen. IVC: Collapses with inspirations. Normal size. PLEURA: CONCLUSION: 1. Mild concentric left ventricular hypertrophy. LVEF is 55 to 60%. 2. Normal right ventricular size and systolic function. 3. Normal diastolic function. 4. Mild aortic, pulmonic and tricuspid regurgitation. 5. Normal right-sided pressures. 6. No pericardial effusion. Adult Echocardiography Procedure Report Left Ventricle LVEDD (3.7 - 5.6 cm): 3.37 cm LVESD (2.2 - 4.0 cm): 2.53 cm LVIVS thickness (0.6 - 1.2 cm): 1.42 cm LVPW thickness (0.5 - 1.0 cm): 1.34 cm e': 0.07 m/s E - e': 11.69 LVOT Max Gradient: 3.32 mm[Hg] Peak Velocity (LVOT): 0.91 m/s Mean Velocity (LVOT): 0.60 m/s LVOT Diameter 1.98 cm Left Ventricular Ejection Fraction: 55-60 % Left Atrium LA Volume Index (2D A2C): 55.50 ml, 55.50 ml Left Atrium Systolic Dimension: 2.65 cm Mitral Valve MV E to A Ratio: 0.75 Mitral Valve A-Wave Peak Velocity: 1.02 m/s Mitral Valve E-Wave Peak Velocity: 0.77 m/s Right Ventricle RV Internal Diastolic Dimension: 3.72 cm Aorta AO Root Diam: 2.93 cm Ascending Ao Diam: 2.81 cm Aortic Valve AoV Area (Peak Gama): 1.88 cm2, 1.88 cm2 AoV Area (VTI): 1.93 cm2, 1.93 cm2 Deceleration Bleckley: 1.86 m/s2 Pressure Half-Time: 696.70 ms Peak Velocity(Antegrade Flow): 1.50 m/s Peak Gradient(Antegrade Flow): 8.95 mm[Hg] Mean Velocity(Antegrade Flow): 1.02 m/s Mean Gradient(Antegrade Flow): 4.78 mm[Hg] Velocity Time Integral: 34.94 cm Tricuspid Valve Peak Velocity (Regurgitant Flow): 2.48 m/s, 2.48 m/s, 2.47 m/s Peak Velocity: 0.35 m/s Pulmonic Valve Mean Gradient: 1.70 mm[Hg] Mean Velocity: 0.61 m/s Peak Velocity: 0.94 m/s, 0.82 m/s Peak Gradient: 3.50 mm[Hg], 2.67 mm[Hg] Right Atrium Right Atrium Systolic Pressure: 46.95 ml, 46.95 ml Dictated by: Demarcus Bolanos M.D. on 08/01/2022 at 17:11 Approved by: Demarcus Bolanos M.D. on 08/01/2022 at 17:15 Normal [facility] XR CHEST 2 Von 08-01-2022 XR CHEST 2 V EXAM: XR CHEST 2 V HISTORY: Dyspnea COMPARISON: None. TECHNIQUE: PA and lateral views of the chest. FINDINGS: The cardiomediastinal silhouette is normal. No focal consolidation is identified. There is no pneumothorax. No pleural effusion is noted. The osseous structures are intact. IMPRESSION: No acute cardiopulmonary process. Electronically authenticated by: EDUARDO JIMENEZ Date: 2022-08-01 09:38 Normal [facility] XR CHEST 2 V Truist Other CBC AUTO DIFFon 02-07-2022 BASO # 0.0 103/ul Normal 0.0-0.1 [facility] Comment on above: Performed By: #### C BC #### [facility] [address] [address] [address] Andrew Neil Basophils/100 WBC (Bld) 0.4 % Normal 0.2-2.0 [facility] Comment on above: Performed By: #### C BC #### [facility] [address] [address] [address] Andrew Neil EO # 0.1 103/ul Normal 0.0-0.7 [facility] Comment on above: Performed By: #### C BC #### [facility] [address] [place] [address] Dr. Andrew Neil Eosinophils/100 WBC (Bld) 1.4 % Normal 0.9-7.0 [facility] Comment on above: Performed By: #### C BC #### [facility] [address] [address] [address] Andrew Neil Erythrocyte distribution width (RBC) [Ratio] 13.8 % Normal 11.0-15.0 [facility] Comment on above: Performed By: #### C BC #### [facility] [address] [place] [address] Dr. Andrew Niel Hematocrit (Bld) [Volume fraction] 35.0 % Critically low 36.0-48.0 [facility] Comment on above: Performed By: #### C BC #### [facility] [address] [address] [address] Andrew Neil Hemoglobin (Bld) [Mass/Vol] 11.4 g/dL Critically low 12.0-16.0 [facility] Comment on above: Performed By: #### C BC #### [facility] [address] [address] [address] Andrew Neil IG # 0.02 10e3/ul Normal 0.00-0.03 [facility] Comment on above: Performed By: #### C BC #### [facility] [address] [place] [address] Dr. Andrew Neil IG % 0.3 % Normal 0.0-0.5 [facility] Comment on above: Performed By: #### C BC #### [facility] [address] [place] [address] Dr. Andrew Neil LYMPH # 1.3 103/ul Normal 1.2-3.8 [facility] Comment on above: Performed By: #### C BC #### [facility] [address] [place] [address] Dr. Andrew Neil Lymphocytes/100 WBC (Bld) 18.5 % Critically low 20.5-60.0 [facility] Comment on above: Performed By: #### C BC #### [facility] [address] [place] [address] Dr. Andrew Neil MANUAL DIFF REQ NO Normal [facility] Comment on above: Performed By: #### C BC #### [facility] [address] [place] [address] Dr. Andrew Neil MCH (RBC) [Entitic mass] 30.4 pg Normal 26.7-34.0 [facility] Comment on above: Performed By: #### C BC #### [facility] [address] [place] [address] Dr. Andrew Neil MCHC (RBC) [Mass/Vol] 32.6 g/dL Normal 29.9-35.2 [facility] Comment on above: Performed By: #### C BC #### [facility] [address] [place] [address] Dr. Andrew Neil MCV (RBC) [Entitic vol] 93.3 fL Normal 81.0-99.0 [facility] Comment on above: Performed By: #### C BC #### [facility] [address] [place] [address] Dr. Andrew Neil MONO # 0.5 103/ul Normal 0.3-0.8 [facility] Comment on above: Performed By: #### C BC #### [facility] [address] [place] [address] Dr. Andrew Neil Monocytes/100 WBC (Bld) 6.9 % Normal 1.7-12.0 [facility] Comment on above: Performed By: #### C BC #### [facility] [address] [place] [address] Dr. Andrew Neil NEUT # 5.1 103/ul Normal 1.4-6.5 [facility] Comment on above: Performed By: #### C BC #### [facility] [address] [place] [address] Dr. Andrew Neil Neutrophils/100 WBC (Bld) 72.5 % Normal 43.0-75.0 [facility] Comment on above: Performed By: #### C BC #### [facility] [address] [place] [address] Dr. Andrew Neil Platelet mean volume (Bld) [Entitic vol] 9.7 fL Normal 9.5-13.5 [facility] Comment on above: Performed By: #### C BC #### [facility] [address] [place] [address] Dr. Andrew Neil PLT 241 103/ul Normal 150-450 [facility] Comment on above: Performed By: #### C BC #### [facility] [address] [place] [address] Dr. Andrew Neil RBC 3.75 106/ul Critically low 4.20-5.[address] [facility] Comment on above: Performed By: #### C BC #### [facility] [address] [place] [address] Dr. Andrew Neil WBC 7.1 103/ul Normal 4.0-11.0 [facility] Comment on above: Performed By: #### C BC #### [facility] [address] [place] [address] Dr. Andrew Neil FERRITINon 02-07-2022 Ferritin [Mass/Vol] 202.0 ng/mL Normal 8.0-252.0 [facility] Comment on above: Performed By: #### V ITB12, FERR, FETIBC #### [facility] [address] [address] [address] Andrew Neil IRON AND TIBCon 02-07-2022 % SATURATION 22.2 % Normal [facility] Comment on above: Performed By: #### V ITB12, FERR, FETIBC #### [facility] [address] [place] [address] Dr. Andrew Neil Iron [Mass/Vol] 62.0 ug/dL Normal 50.0-170.[address] [facility] Comment on above: Performed By: #### V ITB12, FERR, FETIBC #### [facility] [address] [address] [address] Andrew Neil TIBC DIRECT 279.0 ug/dL Normal 250.0-450.0 [facility] Comment on above: Performed By: #### V ITB12, FERR, FETIBC #### [facility] [address] [place] [address] Dr. Andrew Neil PROF CHEM 8 (BAS METB)on Anion gap [Moles/Vol] 9.2 mmol/L Normal [facility] Comment on above: Performed By: #### B MP, TSH #### [facility] [address] [place] [address] Dr. Andrew Neil Calcium [Mass/Vol] 8.6 mg/dL Normal 8.5-10.1 [facility] Comment on above: Performed By: #### B MP, TSH #### [facility] [address] [place] [address] Dr. Andrew Neil Chloride [Moles/Vol] 102 mmol/L Normal 98-107 [facility] Comment on above: Performed By: #### B MP, TSH #### [facility] [address] [place] [address] Dr. Andrew Neil CO2 [Moles/Vol] 30.7 mmol/L Normal 21.0-32.0 [facility] Comment on above: Performed By: #### B MP, TSH #### [facility] [address] [place] [address] Dr. Andrew Neil Creatinine [Mass/Vol] 1.07 mg/dL Critically high 0.55-1.02 [facility] Comment on above: Performed By: #### B MP, TSH #### [facility] [address] [place] [address] Dr. Andrew Neil EGFR-AF INDONESIAN 59 mL/min/1.73m2 Critically low >=60 [facility] Comment on above: Performed By: #### B MP, TSH #### [facility] [address] [address] [address] Andrew Neil EGFR-NON AF INDONESIAN 49 mL/min/1.73m2 Critically low >=60 [facility] Comment on above: Performed By: #### B MP, TSH #### [facility] [address] [place] [address] Dr. Andrew Neil Glucose [Mass/Vol] 92 mg/dL Normal 74-106 [facility] Comment on above: Performed By: #### B MP, TSH #### [facility] [address] [place] [address] Dr. Andrew Neil Potassium [Moles/Vol] 3.9 mmol/L Normal 3.5-5.1 [facility] Comment on above: Performed By: #### B MP, TSH #### [facility] [address] [place] [address] Dr. Andrew Neil Sodium [Moles/Vol] 138 mmol/L Normal 136-145 [facility] Comment on above: Performed By: #### B MP, TSH #### [facility] [address] [place] [address] Dr. Andrew Neil Urea nitrogen [Mass/Vol] 25.0 mg/dL Critically high 7.0-18.0 [facility] Comment on above: Performed By: #### B MP, TSH #### [facility] [address] [place] [address] Dr. Andrew Neil Urea nitrogen/Creatinine [Mass ratio] 23.3 mg/mg Normal [facility] Comment on above: Performed By: #### B MP, TSH #### [facility] [address] [place] [address] Dr. Andrew Neil TSHon 02-07-2022 TSH 1.388 uIU/mL Normal 0.358-3.740 [facility] Comment on above: Performed By: #### B MP, TSH #### [facility] [id number] Andrew Neil VITAMIN B12on 02-07-2022 Cobalamin (Vitamin B12) [Mass/Vol] 663.0 pg/mL Normal 193.0-986.0 [facility] Comment on above: Performed By: #### V ITB12, FERR, FETIBC #### [facility] [address] [place], [place] [address] Dr. Andrew Neil Coding Summary.on 02-06-2022 Coding Summary. [id number] Gh 0bWw+PGhlYWQ+TC2LOPWlK 34lzPDyrU3FZ5lYHW5MKJT IJSZDYP2AJZ9xyRG3JRvwS 2VybiAv XvuphMWiYK97XRq3BCO0kV khRSomlX3xyBVrR8i0OtIv IZ09eG07TCyiYZOxLdU1Nd ZpbjsgbWFy X2ewPkPclWZxNve+PHRhYm xlIHdpZHRoPScxMDAlJyBz uSimFL0eGg3qZCBgAWHrsH xhcHNlOiBj k9feQDXkZBjdGZ8lmGfcQ5 TxuSR5XZLkx0t9Hf73jXO+ DXXpNBQ0iLsvKSqbg342Lw Aer6abSQO8 vLSaKYfdFGH7R91xm5O9FA FeOBTsMOM2xJB0iQ2rsAad nqdvQ4BppQNjZzY1ZDA6bO HppA3knMdq xtvrzT3jBtr+D52SAT9BIX RHPP2TBic7E9XlPskwvKH+ RN42KECzUT66cQVjlHVkx8 ohhPn7HhDf NSJuZHK0fCnoUUvgt7UfLP YaB61jmZXyw2I8QAWimXio sFPqXwXinLC7aX3vWKodvu wkf9owrscx Ppfly3fbuf98iL14Q63aCO caQXBcAMZ8ZRMbAQVvkEfh gg6srR3sXz9+NJuvk5jid9 dudOd1IcWu FWBzotQcaBygRLR6u6DpBp 69U7YcnEwmi9QfZbg2pv54 nFBht1C0tZE7TNveGXKjwY 5oNMxpPkH8 PYXfZtAprD95aMMeMUdiSx 9xwNtxcAadJB7kMCLkxfvo NDRpgM4yKNYmyTVeoIvoXF 4wNTBpbjtm o694AnJsLMB0PGGazCCnM5 FbkM5gJiKzDZSgXRIaY0Uk lOLgNHcmV863RVjwHtZ3MX NrsoEkF7Yt DWMgmWowNxK1i0U7Qa1Ku6 VfwptaSOJ5IXktQXG9BtX0 OrHaZpJ0X2QlHlg4SVEsdD skDM1xY4Dd TPWmdxgrwcauuME9SRJgZB OvvD21uYAkOEpfFx3rh5C9 f102FZEcHUJacN29Ti8dtO ogMTBwdCBU mL6fkiodj1hpedexEjXtSE KjIYw8EVy1FTRjbQjhHrAd BAN5QfS9JTB9vUIovO2peL ymifqomN0l Oyc+O99chN3rTWY4XQQ4el kgSWOimfFuHD94RJ67H5Sx PjwvdGFibGU+PGRpdiBzdH swZH8rRcGk l8wdr1LqZQuwH7IcGKKzPC hyAqd6HJJvJMK6sXJ5rU8o OYCbQUrtq9U3mDA3N2Qyyi Qiam9xn5eq WYAdOArpM41znRCxs2P8KI OfcYG7CWUekOabOwRxbO35 Oyc+KFUjbNdac8GiXrodr8 zia8wciJi2 RyLrOERksxDuyNeiUVC0s7 NdSt62Y26mQAcxBXAtHBLq THLsILUhkWegvg6hjR6hXq 8+PGNvbCB3 lKC7qB4rJRHrAlH4LAjyX9 99VdTvvMBfTtezr9pkc2tc fCl6LbPpTVSgozJufFlaIT H4u5RwYt41 M12eVHzfFCUjWDJeSEFhSU DnoXgyuc0ziO1kOa4+PC9j s3iroh22rJ27fPO+PHRkIH J4yNeuLJhe KZDfvJ6iEQexZoW3DYEcHi VvaQ11sUHcCKwkCo5ulQeb iRwkNU0bSPFpupacf744Bh Kzz7oxFLHt bKRuBOxgETL0P93ma2M4ZF UzAKPzZFR7eWK5pG6kiIwv bjogbGVmdDsgdmVydGljYW inIYzzK124 IHRvcDsnPlBhdGllbnQgTm BxXYp8Y1BqGwe3ZIXjvGxp TM8imUUeDPmiUe6kpNhxrJ bwOZ0wMHCu vmvue556XiZsz5eyNQHlvH FfDPedHGN6I70be5X4IKHd MCXuNPM4wIN6zN2fxIvzql ogbGVmdDsg xnTanYwhTIrzYEhfF131SW RvcDsnPkJpcnRoIERhdGU6 GA77FO53dAGjk9Y6pLW8G8 BhZGRpbmct hodgkHC6AMNjUTBmhH61Qk 5huWqoWs0xKWYrTAL6CCUa jUKaC7CidS8wMdMqOLAgFH OxI2DrgHLc RSgzU544QTnnBnV9HETzzt PqD2XpIKWybKnsWhD5q9I4 Xc2DR6G5CC62ZL02mKVqw7 H3mZD0G7Uk BBPephvyfrpsiWI3NIQsKI WfaZ98Dm7dqCfqYl5mPFWk VXW1CUUlmFZwD6LvtZ1zLn AjMDAwMDAw Z3QogBWzWTpcT036EDhwZe X0TRWhfpUpU6TtGHKueNkl WkI7m9S0Sg2EYSa6TA20CN 93oLLpd6Q5 oWE5V9KhSVNpkdrwacwacC K3TDXtZKTmyF95No0crCjr Pv0sDMWgKPE1PAPlnZItM2 MewC9hAfNs GFBjNSWoT7NhnCNpINaeU0 82RMhtXzQ5ZHFdjyDzI9Xn HPWptIpoZmE3h1Z8Cg9ANW DmKK98DTC7 fHT0DH97VQ30O7HdPefaeN FibGU+PHRhYmxlIHdpZHRo KPltTYTzAhDycQsjWY3wGq 9yZGVyLWNv zCmdvLZqYwZcz9soSUWxXH fbXJ7zyMihE8VunMP5KVIh a3p8Re99N94jC9WqdFM+PG QlfUI5qWX9 fR1oWqHtQhK9HTrgK419Ah PraOBiNzjnx5tbr3splPs7 UiU4HXKbxkWnuJfnYPX5r9 LyYm32R39e IHdpZHRoPSIxNSUiIHZhbG wykl3zpF3jRk6+PGNvbCB3 sVT0vZ7tYbReKbA5SRpgM0 49InRvcCIv Buelr0enb5pffPr1UfJpJY SkasNyyWreXBX7c6LiXv35 N6OecOnas0EyIsy5ey56qX Nno7E7gWY5 V1QsULMzbjzcrEHtwZlyNW 0xEAAhkaxdFVAefM8cCWYu C4r0GhMgEcD6TNqjL7Twwv C4EZYaaQFf KPlmAJI5W30eu7X1YTYiGZ BqSAP8fQI8pO7ipQgidkjk bGVmdDsgdmVydGljYWwtYW wkF779XSOs gUhgEWIhjU8sSDSteZLsjG brEV9wCWAzrtrgNo7FYoAZ SC2gPVJTMBSYX3iGDS02GP 13cYYns7U0 iJD3W9LxBYElikfcwsbkwB Q6OWTzTXWfnA68bYRgWMaa Og0oa2I8s583ESPkVBPaeH 86Lh1znTrb ITPnmWKTcH4doklyy1imxa npRfMnSATgMLq7NZx7TVHk mYbkMzPaPHL8SaR3FYW7aS GsuD8fdIby abqpvG3zHro+MDEvMDcvMT kzNjwvdGQ+CMJfJRO9yDgn QHikTPIsbC7nPNNeF6v1Kk PuSzN0EPwy Z4SbYYUbvqzvWg83mL0vXx KvZdC0JJazJ5SsfkI9HJVj zZYcNZnlJSL9L36qq0C1FY MwMDAwMDA7 fEV6vI3slWvawfblmODemT ugnrVpfJkjOTqxJZyzV339 QSMexJfcNeh5TYkzPFTkFS 80NR11eZQg j4C0tZY6P2EbZZDpkaxdnm mnhYY9ZGStRWNcdT78tMUy XUkbNf9it2J2j593FDSgUV BaoB50Vi4o oRbiOOMspXYYyT0hbiwqj0 pqsegvZkUmISKaRBo1TUi7 OYIriKgmIaGoWCP4DoK5MF H9yYRzgN2y zRhtljlvjA1rIjs+RmVtYW wuXQ97TA18dUUet1C3uWL1 P9GvESOzfapuymrjlAJ3YA PhUCUzsT14 fNAxXDepUm1mr6D6l100VU IrBQRnmX50Ak3lrIzcTCOz xPOZdO9xzjpjv8xidpqbRr AwMDAwMDt0 CYm7OTUueEcxIyZjYLX5Zr E3WSS8lLHqeR2hfZmcxvuw pJ1zXzc+L1H8hAV3eNVkkQ wvdGQ+PC90 mr47V2LcYawuBdh4ZSHhLO C5hVN0sC6qITAkFTdlb2Y8 nJD1O7MdmgEaeq1cb9xqZV TjWRwrV96k hXQww9O2AAJxfSD8NRCgxS xfMnEbyH17Gwb+PGNvbGdy j0AcOlovr3zuw3yqcKn2Ri MwJSIgdmFs aPneWQK1p7HjCz23P97eYX dpZHRoPSIzMCUiIHZhbGln fg6weA8uUi0+LIBjdLW2yU A2mY0fHrQe JdY1VWltQ954NmCbkDLqZt qkq5lzw2bzhBw1PrGzZYTl slLwfIcwESD2j4JyRc33V4 ZtxMytd5Gf Gte9vm44sXVna3F0rNY0E2 JnRDWvhkzyjYJfiPqfES9a WUYjarokGSYkfJ6xHNNxD6 h4OpAiVoO2 SSzcV5UcikN1BQXtiTIyQQ JjtOJKnH2vbqpbi3efxcjk QrSjIIUjYXt0MHn7AEGeuJ duOiBsZWZ0 DhG1PXQ9oZJivT1chLuswr fnyN9uRen+IWh1d7rbdCWz PN7ggKX4OP06ZQ69nSNwo7 B5vTN9N8Yd VXKebejcbqchdVM8WIOkHE EqaF39Fl2mwTqiMf6gOENy AWV8GKIduLRnE2ZygT6zIq AjMDAwMDAw Z6IinRLcGNdcL188QBxdHz T8GKCyrhFaR1JyJLCjkTps KmF0d6R9Vn5OHX72GC28SB 93mVWyt7E5 tMC0L2PgAKVbwueeantqgF G5FAFkYLYfnM14Mf1dyBui Oy7eUXJiIGO4ZWScaYKwY6 WlpW0bSsHl OYWdZUIdX9CntXXoYOwtQ1 31ZRalObP9VONdeeSxX9Xw EMAllJfmWaH4i2B0Rl6RYs 14WQ33ON11 tTRoc7R9qOD9W4WoQEZgjm lcdtofsFO3MPKzHFRkcN29 Ly9qbEhnYc6tXTGsPWJ5NB EpcWKoH7Cl cT2dKjDqKOFnTZThW9UgyP CfNMezY762BBukOeO4CPKn cpLkK9RmVYFacPfiRfI3m9 W3Sn3UPNnn lfk9T5YcSlpwjCB+PC90YW RsRP10lZXkqTBgh3jqzXg1 FkQeRFLwBFJ7xXutYWsfu5 KfEMUpV31y bGFw (more content not included)... Normal [facility] Consent for Treatmenton 01-24 Consent for Treatment [id number]:127 Normal [facility] Physician Orderon 01-24-2022 Physician Order [id number] 0CD:127 Normal [facility] XR HIP GENERAL 3V PELV/AP/LA T LEFTon 11-20-2021 Radiology Result ACTIONABLE Abnormal Anshul ponce [facility] Vital Signs Date Time Vital Sign Value Performing Clinician Facility 09-02-2023 11: Body height 168.91 cm [facility] 09-02-2023 11: Body mass index (BMI) [Ratio] 24.3 kg/m2 [facility] 09-02-2023 11: Body weight 69.45 kg [facility] 09-02-2023 11:040 Diastolic blood pressure 99 mm[Hg] [facility] 09-02-2023 11: Heart rate 77 /min [facility] 09-02-2023 11:17-0400 Respiratory rate 12 /min [facility] 09-02-2023 11:17-0400 Systolic blood pressure 200 mm[Hg] [facility] 04-30-2023 10:00-0500 Body height 168.91 cm Arslan Ball Other [facility] Other 04-30-2023 10:00-0500 Body mass index (BMI) [Ratio] 23.94 kg/m2 Arslan Ball Other [facility] Other 04-30-2023 10:00-0500 Body weight 68.31 kg Arslan Ball Other [facility] Other 04-30-2023 10:00-0500 Diastolic blood pressure 89 mm[Hg] Arslan Ball Other [facility] Other 04-30-2023 10:00-0500 Respiratory rate 12 /min Arslan Ball Other [facility] Other 04-30-2023 10:00-0500 Systolic blood pressure 175 mm[Hg] Arslan Ball Other [facility] Other 03-28-2023 10:15-0400 Body height 168.91 cm Arslan Ball Other [facility] Other 03-28-2023 10:15-0400 Body mass index (BMI) [Ratio] 24.07 kg/m2 Arslan Ball Other [facility] Other 03-28-2023 10:15-0400 Body weight 68.68 kg Arslan Ball Other [facility] Other 03-28-2023 10:15-0400 Diastolic blood pressure 90 mm[Hg] Arslan Ball Other [facility] Other 03-28-2023 10:15-0400 Respiratory rate 12 /min Arslan Ball Other [facility] Other 03-28-2023 10:15-0400 Systolic blood pressure 140 mm[Hg] Arslan Ball Other [facility] Other 01-24-2023 10:00-0400 Body height 168.91 cm Arslan Ball Other [facility] Other 01-24-2023 10:00-0400 Body mass index (BMI) [Ratio] 23.59 kg/m2 Arslan Ball Other [facility] Other 01-24-2023 10:00-0400 Body weight 67.31 kg Arslan Ball Other [facility] Other 01-24-2023 10:00-0400 Diastolic blood pressure 72 mm[Hg] Arslan Ball Other [facility] Other 01-24-2023 10:00-0400 Respiratory rate 12 /min Arslan Ball Other [facility] Other 01-24-2023 10:00-0400 Systolic blood pressure 147 mm[Hg] Arslan Ball Other [facility] Other 11-27-2022 11:30-0400 Body height 168.91 cm Arslan Ball Other [facility] Other 11-27-2022 11:30-0400 Body mass index (BMI) [Ratio] 23.11 kg/m2 Arslan Ball Other [facility] Other 11-27-2022 11:30-0400 Body weight 65.95 kg Arslan Ball Other [facility] Other 11-27-2022 11:30-0400 Diastolic blood pressure 76 mm[Hg] Arslan Ball Other [facility] Other 11-27-2022 11:30-0400 Respiratory rate 12 /min Arslan Ball Other [facility] Other 11-27-2022 11:30-0400 Systolic blood pressure 130 mm[Hg] Arslan Ball Other [facility] Other 07-23-2022 10:00-0500 Body height 168.91 cm Arslan Ball Other [facility] Other 07-23-2022 10:00-0500 Body mass index (BMI) [Ratio] 25.34 kg/m2 Arslan Ball Other [facility] Other 07-23-2022 10:00-0500 Body weight 72.3 kg Arslan Ball Other [facility] Other 07-23-2022 10:00-0500 Diastolic blood pressure 82 mm[Hg] Arslan Ball Other [facility] Other 07-23-2022 10:00-0500 Respiratory rate 12 /min Arslan Ball Other [facility] Other 07-23-2022 10:00-0500 Systolic blood pressure 122 mm[Hg] Arslan Ball Other [facility] Other 11-06-2021 10:30-0400 Body weight 69.4 kg Barbara Blackburn MD Work Phone: [facility] 11-06-2021 10:30-0400 Diastolic blood pressure 62 mm[Hg] Barbara Blackburn MD Work Phone: [facility] 11-06-2021 10:30-0400 Heart rate 72 /min Barbara Blackburn MD Work Phone: [facility] 11-06-2021 10:30-0400 Systolic blood pressure 136 mm[Hg] Barbara Blackburn MD Work Phone: [facility] Encounters Encounter Date Encounter Type Care Provider Facility Start: 09-26-2023 End: 09-26-2023 ambulatory TROY PANTOJA Not Available Start: 09-25-2023 End: 09-25-2023 ambulatory Arslan Morena Facility:[facility] Start: 09-02-2023 End: 09-02-2023 ambulatory [facility] Work Phone: Start: 09-02-2023 End: 09-02-2023 Patient encounter procedure [facility] Work Phone: Start: 04-30-2023 End: 04-30-2023 ambulatory Arslan Morena Other [facility] Other Start: 04-30-2023 Office outpatient vi sit 25 minutes Arslan Morena [facility] Start: 03-28-2023 End: 03-28-2023 ambulatory Arslan Morena Other [facility] Other Start: 03-28-2023 Office outpatient vi sit 15 minutes Arslan Morena [facility] Start: 03-22-2023 Refill Barbara torres MD Work Phone: Endocrinology Comment on above: Refill Request Start: 03-21-2023 End: 03-21-2023 ambulatory Arslan Berg Other [facility] Other Start: 03-21-2023 Telephone encounter Arslan Berg [facility] Start: 03-19-2023 End: 03-19-2023 ambulatory Arslan Morena Other [facility] Other Start: 03-19-2023 Office outpatient vi sit 15 minutes Arslan Berg [facility] Start: 01-24-2023 End: 01-24-2023 ambulatory Arslan Morena Other [facility] Other Start: 01-24-2023 Office outpatient vi sit 15 minutes Arslan Berg [facility] Start: 01-20-2023 End: 01-20-2023 ambulatory Arslan Berg Other [facility] Other Start: 01-20-2023 Telephone encounter Arslan Berg [facility] Start: 12-16-2022 End: 12-16-2022 ambulatory ANGELICA MESSER Facility:[facility] Start: 12-08-2022 End: 12-08-2022 ambulatory Arslan Berg Other [facility] Other Start: 12-08-2022 Telephone encounter Arslan Berg [facility] Start: 11-29-2022 End: 11-29-2022 ambulatory Arslan Berg Other [facility] Other Start: 11-29-2022 Telephone encounter Arslan Berg [facility] Start: 11-27-2022 End: 11-27-2022 ambulatory Arslan Berg Other [facility] Other Start: 11-27-2022 Patient encounter procedure Arslan Berg [facility] Start: 11-22-2022 Telephone encounter [facility] Comment on above: Appointment Start: 11-20-2022 End: 11-20-2022 ambulatory ANGELICA MESSER Facility:[facility] Start: 11-20-2022 End: 11-20-2022 Office outpatient visit 25 minutes Rick Mckinney PA-C Work Phone: Orthopaedics Comment on above: Rupture of hip abduc tor tendon (Primary Dx); Gait disturbance; Closed nondisplaced fracture of medial wall of left acetabulum with routine healing, subsequent encounter Start: 11-15-2022 Orders Only Rick jones PA-C Work Phone: Orthopaedics Comment on above: Primary osteoarthrit is of left hip (Primary Dx) Start: 11-12-2022 End: 11-13-2022 ambulatory ANGELICA MESSER Facility:[facility] Start: 08-01-2022 End: 08-02-[address] ARSLAN BERG Facility: Start: 07-23-2022 End: 07-23-2022 ambulatory Arslan Berg Other [facility] [employer] Other Start: 07-23-2022 Office outpatient vi sit 25 minutes Arslan Berg [facility] Start: 03-25-2022 Refill Barbara torres MD Work Phone: [place] Comment on above: Refill Request Start: 03-04-2022 End: 03-21-[address] ARSLAN BERG Facility: Start: 02-07-2022 End: 02-08-[address] ARSLAN BERG Facility: Start: 02-04-2022 End: 02-05-2022 ambulatory Charlotte Shook [facility] Start: 02-04-2022 End: 02-04-2022 Patient encounter procedure Charlotte Shook [facility] Start: 11-20-2021 Telephone encounter Rick Mckinney PA-C Work Phone: Orthopaedics Comment on above: Results (Remote left acebaular fracture) Start: 11-19-2021 End: 11-19-2021 Orders Only Wilbur Baldwin MD Work Phone: Orthopaedics Comment on above: Pain in left hip (Pr imary Dx) Radiology XR Pain in left hip [M2 5.552] Start: 11-18-2021 ambulatory Wilbur arzola MD Work Phone: Orthopaedics Comment on above: Pain in left hip whi ch is a replacement done by Dr. Baldwin Start: 11-07-2021 ambulatory Barbara torres MD Work Phone: Endocrinology Comment on above: labs Start: 11-07-2021 E-mail encounter fro m caregiver Barbara Blackburn MD Work Phone: [facility] Start: 11-06-2021 End: 11-06-2021 Patient encounter procedure Barbara Blackburn MD Work Phone: Endocrinology Comment on above: Surgical hypoparathy roidism (Primary Dx); Postsurgical hypothyroidism Start: 03-19-2017 Preprocedural examin ation done Barbara Blackburn MD Work Phone: [facility] Work Phone: Procedures Date Procedure Procedure Detail Performing Clinician Start: 11-19-2021 Radex hip unilateral with pelvis 2-3 views Rick Mckinney PA-C Work Phone: Start: 07-01-2017 Cataract extraction and insertion of intraocular lens Charlotte Bouchra Comment on above: left Start: 06-17-2017 Cataract extraction and insertion of intraocular lens Charlotte Bouchra Comment on above: right Start: 12-23-2011 left knee arthroscopy K ristina Bouchra bowel obstruction Charlotte Abreu ao 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 [place] Other Hysterectomy Charlotte Bouchra thyroidectomy Charlotte Bouchra Plan of Treatment Date Care Activity Detail Author Start: 01-24-2023 Covid-19 Vaccine ( season) Covid-19 Vaccine ( season) [facility] Start: 01-24-2023 Influenza vaccination [facility] Start: 07-06-2022 COVID-19 VACCINE (5 - Moderna series) COVID-19 VACCINE (5 - Moderna series) [facility] Start: 05-26-2022 ADVANCE DIRECTIVE DISCUSSION ADVANCE DIRECTIVE DISCUSSION [facility] Start: 05-26-2022 DEPRESSION ASSESSMENT DEPRESSION ASS ESSMENT [facility] Start: 01-24-2022 Influenza vaccination INFLUENZA (#1) [facility] Start: 11-19-2021 End: 01-19-2022 C reactive protein [Mass/volume] in Serum or Plasma C-REACTIVE PROTEIN (CRP) Lab Routine Pain in left hip Expected: 11/19/2021, Expires: 01/19/2022 [facility] Work Phone: Comment on above: Expected: 11/19/2021 , Expires: 01/19/2022 Start: 11-19-2021 End: 01-19-2022 Erythrocyte sedimentation rate SED RATE [facility] Lab Routine Pain in left hip Expected: 11/19/2021, Expires: 01/19/2022 [facility] Work Phone: Comment on above: Expected: 11/19/2021 , Expires: 01/19/2022 Start: 11-06-2021 End: 01-06-2022 25-hydroxyvitamin D3 [Mass/volume] in Serum or Plasma [facility] Work Phone: Comment on above: Expected: 11/06/2021 , Expires: 01/06/2022 Start: 11-06-2021 End: 01-06-2022 Renal function 2000 panel - Serum or Plasma [facility] Work Phone: Comment on above: Expected: 11/06/2021 , Expires: 01/06/2022 Start: 11-06-2021 End: 01-06-2022 Thyrotropin [Units/volume] in Serum or Plasma [facility] Work Phone: Comment on above: Expected: 11/06/2021 , Expires: 01/06/2022 Start: 07-23-2021 COVID-19 VACCINE (4 - Booster for Moderna series) COVID-19 VACCINE (4 - Booster for Moderna series) [facility] Start: 05-26-2021 ADVANCE DIRECTIVE DISCUSSION ADVANCE DIRECTIVE DISCUSSION [facility] Start: 05-26-2021 DEPRESSION ASSESSMENT DEPRESSION ASS ESSMENT [facility] Start: 05-18-2021 COVID-19 VACCINE (4 - Booster for Moderna series) COVID-19 VACCINE (4 - Booster for Moderna series) [facility] Start: 04-02-2020 DIABETES SCREEN DIABETES SCREEN [facility] Start: 04-02-2020 Diabetes Screening Diabetes Screenin g [facility] Start: 2000 BONE DENSITY BONE DENSITY [facility] Start: 2000 Bone Density Screening Bone Density Screening [facility] Start: 2000 Pneumococcal Vaccine : 65+ (1 - PCV) Pneumococcal Vaccine: 65+ (1 - PCV) [facility] Start: 2000 PNEUMOCOCCAL: 65+ (1 - PCV) PNEUMOCOCCAL: 65+ (1 - PCV) [facility] Start: 1995 RSV Vaccine (1 - 1-d ose 60+ series) RSV Vaccine (1 - 1-dose 60+ series) [facility] Start: 1985 SHINGRIX VACCINE (1 of 2) SHINGRIX VACCINE (1 of 2) [facility] Start: 1954 Urine microalbumin profile [facility] US HIP LEFT US HIP LEFT Radi ology Routine Rupture of hip abductor tendon Ordered: 11/20/2022 [facility] Work Phone: Comment on above: Ordered: 11/20/2022 End: 12-19-2022 XR HIP GENERAL 3V PELV/AP/LAT LEFT XR HIP GENERAL 3V PELV/AP/LAT LEFT Radiology Routine Pain in left hip 1 Occurrences starting 11/19/2021 until 12/19/2022 [facility] Work Phone: Comment on above: 1 Occurrences starti ng 11/19/2021 until 12/19/2022 End: 12-15-2023 XR HIP GENERAL 3V PELV/AP/LAT LEFT XR HIP GENERAL 3V PELV/AP/LAT LEFT Radiology Routine Primary osteoarthritis of left hip 1 Occurrences starting 11/15/2022 until 12/15/2023 [facility] Work Phone: Comment on above: 1 Occurrences starti ng 11/15/2022 until 12/15/2023 [facility] Immunizations Immunization Date Immunization Notes Care Provider Keysha leyva 01-24-2023 influenza virus vaccine, unspecified formulation [facility] 01-24-2023 influenza, high dose seasonal, preservative-free Arslan Berg Other [facility] Other 03-05-2022 COVID-19 Pfizer (bivalent) Arslan Berg Other [facility] 02-27-2022 influenza virus vaccine, split virus (incl. purified surface antigen) Arslan Berg Other [facility] [employer] Other 02-27-2022 influenza, high dose seasonal, preservative-free Arslan Berg Other [facility] [employer] Other 02-27-2022 influenza virus vaccine, unspecified formulation Barbara Blackburn MD Work Phone: [facility] 03-23-2021 COVID-19 Vaccine Moderna - Documentation Purposes Only Arslan Berg Other [facility] 07-04-2020 COVID-19 Vaccine Moderna - Documentation Purposes Only Arslan Berg Other [facility] 06-06-2020 COVID-19 Vaccine Moderna - Documentation Purposes Only Arslan Berg Other [facility] 11-08-2012 tetanus toxoid, redu grey diphtheria toxoid, and acellular pertussis vaccine, adsorbed Arslan Berg Other [facility] [employer] Other 11-08-2012 tetanus and diphther ia toxoids, adsorbed, preservative free, for adult use (5 Lf of tetanus toxoid and 2 Lf of diphtheria toxoid) [facility] Payers Date Payer Category Payer Self-pay [id number] 2023 Medicare [id number] 2022 Medicare HUMANA MEDICARE HUMANA MEDICARE PPO [id number] 2022-Present [phone] [place] [address] PPO [id number] 2017 Unknown ANTHPIPPA PRIDE S AND BLUE SHIELD LYNNETTE DIAMOND O [id number] 2017-Present [phone] [address] [place] [address] O [id number] 2017 Unknown [id number] 1959 Medicare [id number] 1959 Unknown [id number] 1935 Unknown [id number] 1935 Unknown [id number] 1935 Unknown [id number] 1935 Unknown [id number] 1935 Unknown [id number] 9 Unknown [id number] Social History Date Type Detail Facility Start: 11-20-2011 End: 11-08-2012 Tobacco smoking status NHIS Never smoked tobacco [facility] Start: 11-06-2021 End: 11-12-2022 Alcohol intake Current non-drinker of alcohol (finding) [facility] Start: 11-20-2011 History SDOH Alcohol Comment once in a while [facility] Start: 1935 Sex Assigned At Female [facility] Start: 10-27-2021 End: 11-06-2021 Exposure to SARS-CoV-2 (event) Not sure [facility] Start: 11-09-2021 End: 11-19-2021 Exposure to SARS-CoV-2 (event) Unable to assess [facility] Tobacco smoking status No Smokin g Status Entered [facility] Start: 11-06-2021 End: 11-12-2022 Sex Assigned At Female [facility] Start: 11-20-2011 Tobacco use and exposure Smokeless tobacco non-user [facility] Work Phone: Start: 11-06-2021 End: 11-12-2022 History of Social function [facility] National Score (1-10 0), lower number is lower risk 73 [facility] Start: 12-05-2020 Gender identity Identifies as female gender (finding) [facility] Start: 12-05-2020 Sexual orientation Heterosexual (catalina schroeder) [facility] Medical Equipment Procedure Code Equipment Code Equipment Origin al Text Equipment Identifier Dates Shell Trident 56 mm F Hemisphere Moss Acetabular Cluster Hole Hip - [id number] Start: 08-10-2015 Liner 36mm 0d F X3 7.9mm Acetabular Hip - [id number] Start: 08-10-2015 Shell Trident 56 mm F Hemisphere Moss Acetabular Cluster Hole Hip - [id number] Start: 03-31-2017 Liner 36mm 0d F X3 7.9mm Acetabular Hip - [id number] Start: 03-31-2017 Stem Accolade Ii 5 132d Femoral - [id number] Start: 08-10-2015 Head V40 36mm -5 mm Offset Taper Biolox Delta Femoral Hip - [id number] Start: 08-10-2015 Head V40 36mm -5 mm Offset Taper Biolox Delta Femoral Hip - [id number] Start: 03-31-2017 Stem Accolade Ii 5 132d Femoral - [id number] Start: 03-31-2017 Screw Secur-Fit Trident 6.5mm Titanium 25mm Acetabular Nonsterile - [id number] Start: 08-10-2015 Screw Secur-Fit Trident 6.5mm Titanium 25mm Acetabular Nonsterile - [id number] Start: 08-10-2015 Screw Trident Secur-Fit Torx 6.5mm Titanium 25mm Bone Sterile Acetabular - [id number] Start: 03-31-2017 Clinical Notes 10-31-2008 to 04-30-2023 Note Date & Type Note Facility 04-30-2023 Evaluation note Encounter Date Diagnosis Assessment Notes Apr, Stage 3a chronic kidney disease (ICD-10 - N18.31) The patient is instructed on adequate control of hypertension and diabetes, if appropriate. They are also educated on the associated risks of NSAIDs and PPI use with kidney disease. They were instructed on adequate fluid balance and to avoid dehydration. Apr, Elevated BP without diagnosis of hypertension (ICD-10 - R03.0) This patient is instructed to consume a healthy, low-fat, low-salt diet. They are also encouraged to continue exercise to achieve/maintain a normal BMI. Patient is instructed on home BP measurements: - rest for 5 minutes w/o talking- positioned w/ feet on floor and arm supported- average best 2/3 readings w/ goal < 135/85 _update office w/ results Apr, Hypercholesterolemia (ICD-10 - E78.00) Instructed on diet and exercise with continued statin therapy.Discusse d the beneficial effects of lowering cholesterol in reducing the risk for cerebrovascular and cardiovascular disease. Apr, Mild episode of recurrent major depressive disorder (ICD-10 - F33.0) Trialed several antidepressants but d/c due to side effects. Using low dose Remeron for sleep and depression, may increase to 30mg Apr, Gastroesophageal reflux disease with esophagitis without hemorrhage (ICD-10 - K21.00) Diet instructions: Smaller portions, avoid eating and laying flat, avoid eating or drinking prior to bedtime. Weight loss. Apr, Autoimmune thyroiditis (ICD-10 - E06.3) Clinically euthyroid, TSH yearly Apr, Other specified hypothyroidism (ICD-10 - E03.8) Apr, Idiopathic hypoparathyroidism (ICD-10 - E20.0) Continue replacement therapy Monitor Ca, Vit D Apr, Primary insomnia (ICD-10 - F51.01) Improved w/ Remeron but taking to early in the evening. Awakening at 3am but that is actually 7 hours after going to bed. Instructed to take Remeron later Apr, Lumbar spondylosis (ICD-10 - M47.816) The patient is instructed to avoid bending, twisting or lifting. They are to use intermittent heat and ice as needed. They may schedule a massage or gentle manipulation. They may safely use Tylenol as needed. [facility] Other 11-03-2023 Evaluation note* Encounter Date Diagnosis Assessment Notes Treatment Notes Treatment Clinical Notes Mar, Acute non-recurrent maxillary sinusitis (ICD-10 - J01.00) Instructed to use Robitussin or Mucinex for cough, saline or Flonase NS for congestion, Tylenol for pain and fever. Mar, Elevated BP without diagnosis of hypertension (ICD-10 - R03.0) This patient is instructed to consume a healthy, low-fat, low-salt diet. They are also encouraged to continue exercise to achieve/maintain a normal BMI. Patient is instructed on home BP measurements: - rest for 5 minutes w/o talking- positioned w/ feet on floor and arm supported- average best 2/3 readings w/ goal < 135/85 Mar, Stage 3a chronic kidney disease (ICD-10 - N18.31) The patient is instructed on adequate control of hypertension and diabetes, if appropriate. They are also educated on the associated risks of NSAIDs and PPI use with kidney disease. They were instructed on adequate fluid balance and to avoid dehydration. [facility] Other 10-30-2023 Miscellaneous Notes* Telephone Encounter - Alexandra Osuna MA - 03/24/2023 9:16 AM EDT Requester: Pharmacy Patients last Endocrinology visit occurred 11-12-22. Follow-up evaluation has been established Upcoming Endocrinology Appointments - Next 365 Days No appointments to display . Requested Prescriptions Pending Prescriptions Disp Refills calcitriol (ROCALTROL) 0.5 mcg capsule [Pharmacy Med Name: CALCITRIOL 0.5 MCG CAPSULE] 90 capsule 3 Sig: take 1 capsule by mouth once daily If patient is due for an appointment please route to provider for refill consideration and also to the endo scheduling pool. PSS NOTE: Patient needs scheduled appointment No documented in this encounter[facility]* Encounter Date Diagnosis Assessment Notes Treatment Notes Treatment Clinical Notes Feb, Acute bronchitis due to other specified organisms (ICD-10 - J20.8) Instructed to use Robitussin or Mucinex for cough, saline or Flonase NS for congestion, Tylenol for pain and fever. Feb, Stage 3a chronic kidney disease (ICD-10 - N18.31) The patient is instructed on adequate control of hypertension and diabetes, if appropriate. They are also educated on the associated risks of NSAIDs and PPI use with kidney disease. They were instructed on adequate fluid balance and to avoid dehydration. [facility] Other 09-01-2023 Evaluation note* Encounter Date Diagnosis Assessment Notes Treatment Notes Treatment Clinical Notes Jan, Gastroesophageal reflux disease with esophagitis without hemorrhage (ICD-10 - K21.00) Diet instructions: Smaller portions, avoid eating and laying flat, avoid eating or drinking prior to bedtime. Weight loss. 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 Instructed on proper use of nasal spray Begin Zyrtec Jan, Primary insomnia (ICD-10 - F51.01) d/c Trazodone Begin Mirtazapine 15-30 mg Jan, Left hip pain (ICD-1 0 - M25.552) Continue exercises, stretching Injury to muscle prevents improvement Completed therapy w/o benefit Jan, Mild episode of recurrent major depressive disorder (ICD-10 - F33.0) Healthy diet, keep active and restart Remeron [facility] Other 08-28-2023 Evaluation note* Encounter Date Diagnosis Assessment Notes Treatment Notes Treatment Clinical Notes Dec, Pernicious anemia (ICD-10 - D51.0) Dec, Chronic kidney disease, stage 4 (severe) (ICD-10 - N18.4) [facility] Other 07-05-2023 Evaluation note* Encounter Date Diagnosis Assessment Notes Treatment Notes Treatment Clinical Notes Nov, Medicare annual well ness visit, subsequent (ICD-10 - Z00.00) Personalized health advice was given to the beneficiary including a written plan for screenings discussed and provided. Advanced care planning reviewed and/or information given as requested. Additional counseling was provided here today in regards to, [ ]. The above visit was performed by [ ], under direct supervision of [ ]. Document reviewed and amended by provider signed below. Nov, Hypercholesterolemia (ICD-10 - E78.00) Instructed on diet and exercise with continued statin therapy.Discussed the beneficial effects of lowering cholesterol in reducing the risk for cerebrovascular and cardiovascular disease. 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 Nov, Pernicious anemia (I CD-10 - D51.0) Healthy diet, keep active no change in medical treatment. Misses but not suicidal Nov, Idiopathic hypoparathyroidism (ICD-10 - E20.0) Routine f/u w/ endocrinology Ca, Vitamin D supplements Nov, Gastroesophageal ref lux disease with esophagitis without hemorrhage (ICD-10 - K21.00) Diet instructions: Smaller portions, avoid eating and laying flat, avoid eating or drinking prior to bedtime. Weight loss. Nov, Lumbar spondylosis (ICD-10 - M47.816) The patient is instructed to avoid bending, twisting or lifting. They are to use intermittent heat and ice as needed. They may schedule a massage or gentle manipulation. They may safely use Tylenol as needed. Nov, Primary insomnia (IC D-10 - F51.01) Instructed on proper sleep routine. 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 Discussed importance w/ bone strength [facility] Other 06-30-2023 Miscellaneous Notes* Telephone Encounter - Coreen Worthy - 11/22/2022 2:35 PM EDT PT scheduled for ALK US on 12/16/22 at 1 pm at [facility]. * Telephone Encounter - Keaton Roach - 11/22/2022 2:32 PM EDT Pt called back at 2:22, please give this pt a call back to make sure their scheduled for an appt. * Telephone Encounter - Coreen Worthy - 11/22/2022 1:40 PM EDT Called patient on 11/22/22 at 1:41 pm to schedule their MSK US exam. No answer, left VM, 1st attempt. * Telephone Encounter - Coreen Worthy - 11/22/2022 1:14 PM EDT Visit Type: US MSK1 Visit Length: 45 OR 60 MINUTES Order Name/Protocol: US HIP LT; LATERAL-EVAL LT HIP ABDUCTORS INCLUDING GLUTE MIN/MED/MAX MUSCLES FOR ATROPHY, TENDINOSIS, AND/OR DISRUPTION. HX OF LT THR. Preferred Provider: N/A Comment: N/A [facility] Slot held: N/A documented in this encounterPark[facility] NoteHNO ID: [id number] Author: Rick Mckinney PA-C Service: ? Author Type: Physician Car Repossessor Type: Progress Notes Filed: 11/20/2022 2:41 PM Note Text: Ortho Hip Follow Up Note Narrative Referring Provider: No referring provider defined for this encounter. PCP: Angelica Messer MD IMPRESSION/PLAN: Impressions indicate: 87 year old s/p Left Total Hip Replacement completed on 08/10/2015. Patient contacted this office approximately 1 year ago to the date complaining of left hip pain. She had fallen sometime earlier and sustained a left acetabular medial wall fracture that has gone on to heal without evidence of loosening of her left femoral acetabular component. She presents today complaining of limp and lateral hip pain on that left side. Recent Surgeries this specialty 03/31/2017 (5yr) ARTHROPLASTY REPLACE JOINT TOTAL HIP (Right) Wilbur Baldwin MD; Rick Metz III - Posted 08/10/2015 (7yr) ARTHROPLASTY REPLACE JOINT TOTAL HIP (Left) Wilbur Baldwin MD - Posted 12/23/2011 (10yr) ARTHROSCOPY KNEE MENISCECTOMY MEDIAL OR LATERAL (Left) Troy Boo MD - Posted PAIN EVALUATION 11/18/2022 0600 Pain Level: 5 Pain Location: Hip-Left Description: Aching IMPRESSION: Overt left hip abductor insufficiency/weakness Routine healing of left acetabular periprosthetic fracture without evidence of loosening of her left hip component. Trendelenburg gait secondary to disruption of abductor tendon. PLAN: Ultrasound of the left hip abductors ordered to discern integrity of same as it relates to ordering PT in the future. Rollator walker order was provided. PT in the future to help strengthen the lateral hip abductors. Lengthy discussion with the patient and her daughter today as to the permanent nature of this issue and there is no surgical solution for same. Patient Reassurance: Patient reassured and supported. All questions answered. 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 STATUS POST: BMI: There is no height or weight on file to calculate BMI. ED Visits AND Hospitalizations - Last 180 days None Patient rates their condition as worsening. Does the patient still experience pain? Onset: yes. Location: Left hip: Greater trochanter. Frequency: constantly. Pain scale: 5 and 6. Pain character: ache. Relieving factors: Rest, Pain medication, and Walker. Aggravating factors: Prolonged standing and Walking long distances. Post Op discharge patient location: in home. Functional Assessment is as follows: completed course of therapy and completed home PT. Functional difficulties: None. Pain Medication: Non-narcotic Physical Therapy Data 08/11/2015 08/11/2015 Therapist that will oversee plan of care Neela Irby Michelle EXAM: POST OP HIP LEFT POST-OPERATIVE HIP SKIN: Appropriate postop appearance. Range of Motion: Painful Neurovascular Status: Sensation Intact and Moves foot and ankle up AND down Gait: Trendelenberg to the left LEFT HIP EXAM: Palpable defect posterior greater troches at abductor insertion. Marked abductor weakness on exam today. IMAGING: X-ray Hips: Post op Remote medial acetabular wall fracture with good callus and no evidence of nonunion. No evidence of of acetabular component loosening when compared to images from October 2021. Provider: OTTO [facility]06-28-2023 NoteHNO ID: [id number] Author: RT Katarzyna(R) Service: Radiology Author Type: Technologist Type: Progress Notes Filed: 11/20/2022 1:49 PM Note Text: Radiology Service Progress Note PATIENT NAME: Rory Castellanos DATE OF SERVICE: November 20, 2022 TIME: 1:48 PM PATIENT IDENTITY VERIFICATION COMPLETED USING TWO (2) IDENTIFIERS: Name and Date of confirmed by patient verbally. FALL SCREENING: Has the patient had 2 falls in the last year or 1 fall with injury or currently using an Ambulatory Assistive Device (Walker, Cane, Wheelchair, Crutches, etc.)? No PATIENT GENDER DATA: Female. status: : No status: NO. PATIENT RELEVANT IMPLANT DATA REVIEWED: Not Applicable RADIOLOGY DEPARTMENT: General X-ray: Exam(s) Completed: Pelvis X-Ray: Pelvis with Hip Left PERIPHERAL IV DATA: Not applicable SIGNED BY: LANE FLEMING,RT Anna Haile, (R) November 20, 2022 1:48 [facility]06-28-2023 History of Present illness Narrative* Rick Mckinney PA-C - 11/20/2022 1:54 PM EDT Images from the original note were not included. Ortho Hip Follow Up Note Narrative Referring Provider: No referring provider defined for this encounter. PCP: Angelica Messer MD IMPRESSION/PLAN: Impressions indicate: 87 year old s/p Left Total Hip Replacement completed on 08/10/2015. Patient contacted this office approximately 1 year ago to the date complaining of left hip pain. She had fallen sometime earlier and sustained a left acetabular medial wall fracture that has gone on to heal without evidence of loosening of her left femoral acetabular component. She presents today complaining of limp and lateral hip pain on that left side. Recent Surgeries this specialty 03/31/2017 (5yr) ARTHROPLASTY REPLACE JOINT TOTAL HIP (Right) Wilbur Baldwin MD; Rick Metz III - Posted 08/10/2015 (7yr) ARTHROPLASTY REPLACE JOINT TOTAL HIP (Left) Wilbur Baldwin MD - Posted 12/23/2011 (10yr) ARTHROSCOPY KNEE MENISCECTOMY MEDIAL OR LATERAL (Left) Troy Boo MD - Posted PAIN EVALUATION 11/18/2022 0600 Pain Level: 5 Pain Location: Hip-Left Description: Aching IMPRESSION: Overt left hip abductor insufficiency/weakness Routine healing of left acetabular periprosthetic fracture without evidence of loosening of her left hip component. Trendelenburg gait secondary to disruption of abductor tendon. PLAN: Ultrasound of the left hip abductors ordered to discern integrity of same as it relates to orderingPT in the future. Rollator walker order was provided. PT in the future to help strengthen the lateral hip abductors. Lengthy discussion with the patient and her daughter today as to the permanent nature of this issueand there is no surgical solution for same. Patient Reassurance: Patient reassured and supported. All questions answered. 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 STATUS POST: BMI: There is no height or weight on file to calculate BMI. ED Visits & Hospitalizations - Last 180 days None Patient rates their condition as worsening. Does the patient still experience pain? Onset: yes. Location: Left hip: Greater trochanter. Frequency: constantly. Pain scale: 5 and 6. Pain character: ache. Relieving factors: Rest, Pain medication,and Walker. Aggravating factors: Prolonged standing and Walking long distances. Post Op discharge patient location: in home. Functional Assessment is as follows: completed course of therapy and completed home PT. Functional difficulties: None. Pain Medication: Non-narcotic Physical Therapy Data 08/11/2015 08/11/2015 Therapist that will oversee plan of care Neela Irby Michelle EXAM: POST OP HIP LEFT POST-OPERATIVE HIP SKIN: Appropriate postop appearance. Range of Motion: Painful Neurovascular Status: Sensation Intact and Moves foot and ankle up & down Gait: Trendelenberg to the left LEFT HIP EXAM: Palpable defect posterior greater troches at abductor insertion. Marked abductor weakness on exam today. IMAGING: X-ray Hips: Post op Remote medial acetabular wall fracture with good callus and no evidence of nonunion. No evidence of of acetabular component loosening when compared to images from October 2021. Provider: Rick Mckinney PA-C documented in this encounterPark[facility]23 NoteHNO ID: [id number] Author: Barbara Blackburn MD Service: ? Author Type: Physician Type: Progress Notes Filed: 11/12/2022 12:17 PM Note Text: 87yo WF with h/o partial thyroidectomy 1961 c/b post-op hypoparathyroidism and hypothyroidism, here for f/u Current Regimen: LT4 100mcg daily except half a tablet on Friday and skips Friday Calcitriol 0.5mcg daily Calcium Carbonate/Vitamin D 600mg/400u BID Takes LT4 inappropriately/inconsistently: No Energy loss: lower overall, hip problems limit her Wt change: lost 10 lbs since a year ago BM irregularities: No Temp intolerance: No Sweats: No Skin changes: No Hair changes: No Cramps: No Tremor: No Palpitations: No Numbness/tingling: No Exposure to contrast, kelp, supplements, MVI, Biotin: No All other Review of Systems reviewed and are negative. 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 Syncope Early 2011, isolated incident, no f/u Unspecified hypothyroidism Hypothyroidism s/p thyroidectomy for goiter 1960 FAMILY HISTORY Problem Relation Age of Onset Cancer Daughter Ovarian cancer Social History Tobacco Use Smoking status: Never Smokeless tobacco: Never Substance Use Topics Alcohol use: No Comment: once in a while vit C/E/Zn/coppr/lutein/zeaxan (PRESERVISION AREDS-2 ORAL), Take by mouth., Disp: , Rfl: levothyroxine (SYNTHROID) 100 mcg tablet, Take 1 tablet by mouth once daily., Disp: 90 tablet, Rfl: 3 calcitriol (ROCALTROL) 0.5 mcg capsule, Take 1 capsule by mouth once daily., Disp: 90 capsule, Rfl: 3 COQ10, UBIQUINOL, ORAL, Take by mouth., Disp: , Rfl: Eufqg-0-QEO-EPA-Fish Oil 1,000 mg (120 mg-180 mg) cap, Take 2 g by mouth twice daily., Disp: , Rfl: Red Yeast Rice Extract 600 mg cap, Take 1 capsule by mouth twice daily., Disp: , Rfl: CALCIUM CARBONATE/VITAMIN D3 (CALCIUM 600 + D ORAL), Take 1 tablet by mouth twice daily., Disp: , Rfl: GLUC RENAE/CHONDRO RENAE A/VIT C/MN (GLUCOSAMINE 1500 COMPLEX ORAL), Take 1 tablet by mouth twice daily., Disp: , Rfl: MULTIVITS,CA,MINERALS/IRON/FA (ONE-A-DAY WOMENS FORMULA ORAL), Take 1 tablet by mouth once daily., Disp: , Rfl: PE: BP 134/62 Pulse 72 Wt 68.9 kg (152 lb) BMI 24.55 kg/m? Last 3 Encounter Wt Readings: Date: Wt: 11/12/2022 68.9 kg (152 lb) 11/06/2021 69.4 kg (153 lb) 12/04/2018 71.9 kg (158 lb 9.6 oz) Gen - NAD, comfortable, pleasant Neck - No visible neck swelling, No tender, small left palpable thyroid tissue, +thyroidectomy scar intact/clean CVS - RRR no murmurs Skin - normal texture, normal temperature MSK - 5/5 UE proximal muscle strength bilaterally Neuro - normal relaxation phase of bilateral UE reflexes, No hand tremor Component Latest Ref Rng AND Units 11/06/2021 Albumin 3.9 - 4.9 g/dL 4.1 Calcium 8.5 - 10.2 mg/dL 8.3 (L) Phosphorus 2.7 - 4.8 mg/dL 4.6 Glucose 74 - 99 mg/dL 80 BUN 7 - 21 mg/dL 28 (H) Creatinine 0.58 - 0.96 mg/dL 1.11 (H) Sodium 136 - 144 mmol/L 141 Potassium 3.7 - 5.1 mmol/L 4.5 Chloride 97 - 105 mmol/L 102 CO2 22 - 30 mmol/L 27 Anion Gap 9 - 18 mmol/L 12 eGFR >=60 mL/min/1.73mA? 49 (L) TSH 0.270 - 4.200 mIU/L 1.400 Vitamin D 25 Hydroxy 31.0 - 80.0 ng/mL 47.3 OSH Labs 06/08/21 - Ca 7.8, Cr 1.14, GFR 45 11/25/20 - TSH 1.604, Ca 7.8, Alb 3.9, Cr 1.13, GFR 46 07/28/20 - Ca 8.0, Cr 1.17, GFR 44 Rory was seen today for thyroid problem. Diagnoses and all orders for this visit: Surgical hypoparathyroidism -calcium low-normal and stable for years -check RFP and Vitamin D levels today to monitor control - RENAL FUNCTION PANEL; Future - VITAMIN D 25 HYDROXY; Future Postsurgical hypothyroidism -clinically euthyroid -check TSH today to monitor control - TSH BLD; Future F/u 1 year The assessment and benefits/risks of the plan were discussed with the patient who expressed understanding and was agreeable to that which is noted above. All documentation from previous visit was copied and pasted, documentation has been reviewed and edited as necessary for today's visit.[facility]02-28-2023 Evaluation note* Encounter Date Diagnosis Assessment Notes Treatment Notes Treatment Clinical Notes Jun, Hypercholesterolemia (ICD-10 - E78.00) Diet and exercise with continued statin therapy. 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 Weight loss. Jun, Moderate episode of recurrent major depressive disorder (ICD-10 - F33.1) Healthy diet, exercise. Much improved, keep active Jun, Lumbar spondylosis (ICD-10 - M47.816) The patient is instructed to avoid bending, twisting or lifting. They are to use intermittent heat and ice as needed. They may schedule a massage or gentle manipulation. They may safely use Tylenol as needed. Jun, BRAXTON (dyspnea on exer tion) (ICD-10 - R06.09) CXR to r/o infiltrate, mass or fluid. Echocardiogram to r/o LVD, valvular disease Jun, Heart murmur (ICD-10 - R01.1) Jun, Primary insomnia (IC D-10 - F51.01) Jun, History of total lef t hip replacement (ICD-10 - Z96.642) Ice, heat, Voltaren Gel. Back to Ortho? [facility] Other 11-01-2022 Miscellaneous Notes* Telephone Encounter - Linwood Uriostegui MA - 03/26/2022 8:31 AM EDT Requester: Patient Patients last Endocrinology visit occurred 11/06/21. Follow-up evaluation has NOT been established. Requested Prescriptions Pending Prescriptions Disp Refills levothyroxine (SYNTHROID) 100 mcg tablet 90 tablet 3 Sig: Take 1 tablet by mouth once daily. calcitriol (ROCALTROL) 0.5 mcg capsule 90 capsule 3 Sig: Take 1 capsule by mouth once daily. If patient is due for an appointment please route to provider for refill consideration and also to the endo scheduling pool. PSS NOTE: Patient needs scheduled appointment Yes, patient is due to follow up around 11/06/22 as well as labs * Telephone Encounter - Nadeen Roach - 03/25/2022 2:20 PM EDT Patient is COMPLETELY out of these medications. Patient has been identified by name and date of : Yes Requested Prescriptions Pending Prescriptions Disp Refills levothyroxine (SYNTHROID) 100 mcg tablet 90 tablet 3 Sig: Take 1 tablet by mouth once daily. calcitriol (ROCALTROL) 0.5 mcg capsule 90 capsule 3 Sig: Take 1 capsule by mouth once daily. RX INSTRUCTIONS: Patient aware RX will be sent to pharmacy. Please CALL to notify patient. Nadeen Roach documented in this encounterPark[facility] Evaluation + Plan note Future Scheduled Tests Radiology* XR Chest 2 Views 02/04/22 [facility]06-28[facility]22 Miscellaneous Notes* Telephone Encounter - Rick Mckinney PA-C - 11/20/2021 3:31 PM EDT I spoke with the patient today regarding her recent x-rays that indicates she has a remote acetabular fracture on the left side. The patient does give a history of approximately 1-2 years ago fallingin her basement with this resulting injury that was treated nonoperatively by her local orthopedist. Based on her description of her pain location, she likely has lateral hip pain based on her altered gait. There is no evidence of her hip construct being loose on the left side. documented in this encounterPark[facility]06-27-[facility]22 History of Present illness Narrative* RT Krystal(R) - 11/19/2021 3:35 PM EDT Radiology Service Progress Note PATIENT NAME: Rory Castellanos DATE OF SERVICE: November 19, 2021 TIME: 3:35 PM PATIENT IDENTITY VERIFICATION COMPLETED USING TWO (2) IDENTIFIERS: Name and Date of confirmedby patient verbally. FALL SCREENING: Has the patient had 2 falls in the last year or 1 fall with injury or currently using an Ambulatory Assistive Device (Walker, Cane, Wheelchair, Crutches, etc.)? No PATIENT GENDER DATA: Female. status: : No status: NO. PATIENT RELEVANT IMPLANT DATA REVIEWED: Yes RADIOLOGY DEPARTMENT: General X-ray: Exam(s) Completed: Pelvis X-Ray: Pelvis with Hip Left PERIPHERAL IV DATA: Not applicable SIGNED BY: RT Krystal(R) November 19, 2021 3:35 PM documented in this encounterPark[facility]06-15-2022 Miscellaneous Notes* Telephone Encounter - Barbara Blackburn MD - 11/07/2021 9:13 AM EDT Labs normal, repeat in 1 year, sent Zalando message documented in this encounterPark[facility]06-14-2022 Instructions* Patient Instructions* Barbara Blackburn MD - 11/06/2021 10:32 AM EDT Please get blood test today documented in this encounterPark[facility]06-14-2022 History of Present illness Narrative* Barbara Blackburn MD - 11/06/2021 10:20 AM EDT 86yo WF with h/o partial thyroidectomy 1961 c/b post-op hypoparathyroidism and hypothyroidism, previously followed by Dr. Hopson, here for f/u Current Regimen: LT4 100mcg daily Calcitriol 0.5mcg daily Calcium Carbonate/Vitamin D 600mg/400u BID Doing ok overall, though recently. Taking medication to help with sleep and to take the edge off . Takes LT4 inappropriately/inconsistently: No Energy loss: No Sleep disturbances: Yes, since passed Appetite change: No Wt change: lost some weight after passed (maybe 7 lbs), but appetite starting to improve BM irregularities: No Temp intolerance: cold a lot, as she has gotten older Sweats: No Skin changes: No Tremor: No Palpitations: No Numbness/tingling: No Cramps: No, just an occasional leg cramp overnight Exposure to contrast, kelp, supplements, MVI, Biotin: Yes, Biotin, last dose yesterday morning Neck pain/swelling: No Dysphagia: No Dyspnea: No Voice change: No All other Review of Systems reviewed and are negative. 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 Syncope Early 2011, isolated incident, no f/u Unspecified hypothyroidism Hypothyroidism s/p thyroidectomy for goiter 1960 FAMILY HISTORY Problem Relation Age of Onset Cancer Daughter Ovarian cancer Social History Tobacco Use Smoking status: Never Smoker Smokeless tobacco: Never Used Substance Use Topics Alcohol use: No Comment: once in a while Drug use: Not on file Garlic 1,000 mg cap, Take by mouth., Disp: , Rfl: COQ10, UBIQUINOL, ORAL, Take by mouth., Disp: , Rfl: biotin 5,000 mcg subl, Dissolve under the tongue., Disp: , Rfl: omega-3 fatty acids (SUPER OMEGA-3) 1,000 mg cap, Take 2 g by mouth twice daily., Disp: , Rfl: Ofvxw-7-BUR-EPA-Fish Oil (FISH OIL) 1,000 mg (120 mg-180 mg) cap, Take 2 g by mouth twice daily., Disp: , Rfl: montelukast (SINGULAIR) 10 mg tablet, Take 10 mg by mouth daily at bedtime., Disp: , Rfl: mirtazapine (REMERON) 30 mg tablet, TAKE 1 TABLET BY MOUTH EVERYDAY AT BEDTIME, Disp: , Rfl: levothyroxine (SYNTHROID) 100 mcg tablet, Take 1 tablet by mouth once daily., Disp: 90 tablet, Rfl:3 calcitriol (ROCALTROL) 0.5 mcg capsule, Take 1 capsule by mouth once daily., Disp: 90 capsule, Rfl:3 Red Yeast Rice Extract 600 mg cap, Take 1 capsule by mouth twice daily., Disp: , Rfl: ascorbic acid, vitamin C, (VITAMIN C) 500 mg tablet, Take 1 tablet by mouth twice daily with meals., Disp: , Rfl: 0 CALCIUM CARBONATE/VITAMIN D3 (CALCIUM 600 + D ORAL), Take 1 tablet by mouth twice daily., Disp: , Rfl: GLUC RENAE/CHONDRO RENAE A/VIT C/MN (GLUCOSAMINE 1500 COMPLEX ORAL), Take 1 tablet by mouth twice daily.,Disp: , Rfl: MULTIVITS,CA,MINERALS/IRON/FA (ONE-A-DAY WOMENS FORMULA ORAL), Take 1 tablet by mouth once daily., Disp: , Rfl: PE: BP 136/62 Pulse 72 Wt 69.4 kg (153 lb) BMI 24.71 kg/m Last 3 Encounter Wt Readings: Date: Wt: 11/06/2021 69.4 kg (153 lb) 12/04/2018 71.9 kg (158 lb 9.6 oz) 12/04/2017 73.5 kg (162 lb) Gen - NAD, comfortable, pleasant Neck - No visible neck swelling, No tender, small left palpable thyroid tissue, +thyroidectomy scarintact/clean CVS - RRR no murmurs Skin - normal texture, normal temperature MSK - 5/5 UE proximal muscle strength bilaterally Neuro - normal relaxation phase of bilateral UE reflexes, No hand tremor OSH Labs 06/08/21 - Ca 7.8, Cr 1.14, GFR 45 11/25/20 - TSH 1.604, Ca 7.8, Alb 3.9, Cr 1.13, GFR 46 07/28/20 - Ca 8.0, Cr 1.17, GFR 44 Rory was seen today for new patient. Diagnoses and all orders for this visit: Surgical hypoparathyroidism -calcium low-normal and stable for years -check RFP and Vitamin D levels today to monitor control - RENAL FUNCTION PANEL; Future - VITAMIN D 25 HYDROXY; Future Postsurgical hypothyroidism -clinically euthyroid -check TSH today to monitor control - TSH BLD; Future F/u 1 year The assessment and benefits/risks of the plan were discussed with the patient who expressed understanding and was agreeable to that which is noted above. Medical Decision Making: Level: 4 - Moderate documented in this encounterPark[facility]06-08-2009 History of Past illness Narrative* Problem Noted Date Resolved Date Hypoparathyroidism 10/31/2008 09/03/2010 documented as of this encounter (statuses as of 11/06/2021) [address]08-2009 History of Past illness Narrative* Problem Noted Date Resolved Date Hypoparathyroidism 10/31/2008 09/03/2010 documented as of this encounter (statuses as of 11/07/2021) [facility] of Past illness Narrative* Problem Noted Date Resolved Date Hypoparathyroidism 10/31/2008 09/03/2010 documented as of this encounter (statuses as of 11/19/2021) [facility] of Past illness Narrative* Problem Noted Date Resolved Date Hypoparathyroidism 10/31/2008 09/03/2010 documented as of this encounter (statuses as of 11/19/2021) [facility] of Past illness Narrative* Problem Noted Date Resolved Date Hypoparathyroidism 10/31/2008 09/03/2010 documented as of this encounter (statuses as of 11/20/2021) [facility] of Past illness Narrative* Problem Noted Date Resolved Date Hypoparathyroidism 10/31/2008 09/03/2010 documented as of this encounter (statuses as of 03/26/2022) [facility] of Past illness Narrative* Problem Noted Date Resolved Date Hypoparathyroidism 10/31/2008 09/03/2010 documented as of this encounter (statuses as of 11/16/2022) [facility] of Past illness Narrative* Problem Noted Date Resolved Date Hypoparathyroidism 10/31/2008 09/03/2010 documented as of this encounter (statuses as of 11/21/2022) [facility] of [facility] illness Narrative* Problem Noted Date Resolved Date Hypoparathyroidism 10/31/2008 09/03/2010 documented as of this encounter (statuses as of 11/22/2022) [facility] of [facility] illness Narrative* Problem Noted Date Diagnosed Date Resolved Date Hypoparathyroidism 10/31/2008 1 documented as of this encounter (statuses as of 01/03/2023) [facility] of Past illness Narrative* Problem Noted Date Diagnosed Date Resolved Date Hypoparathyroidism 10/31/2008 1 documented as of this encounter (statuses as of 03/25/2023) [facility] note* Diagnosis Surgical hypoparathyroidism- Primary Hypoparathyroidism Postsurgical hypothyroidism [facility] Diagnosis Pain in left hip- Primary Pain in joint, pelvic region and thigh documented in this [facility]* Diagnosis Postsurgical hypothyroidism Surgical hypoparathyroidism Hypoparathyroidism [facility]* Diagnosis Primary osteoarthritis of left hip- Primary Primary localized osteoarthrosis, pelvic region and thigh [facility]* Diagnosis Rupture of hip abductor tendon- Primary Gait disturbance Abnormality of gait Closed nondisplaced fracture of medial wall of left acetabulum with routine healing, subsequent encounter [facility] this encounter [facility] noteNo [employer] [employer] Other Evaluation note* Diagnosis Pain in left hip Pain in joint, pelvic region and thigh [facility] this [facility]* Diagnosis Surgical hypoparathyroidism Hypoparathyroidism [facility]* Diagnosis Onset Date Resolution Status Chronic kidney disease acute Elevated BP without diagnosis of hypertension acute Elevated cholesterol acute GERD (gastroesophageal reflux disease) acute Hypoparathyroidism acute Hypothyroid acute Lumbar spondylosis acute Major depression acute [facility] Work Phone: History general Narrative - Reported* Type Description Date Medical History hyperlipidemia Medical History thyroid disease Medical History low calcium 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 Medical History History of left hip replacement 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 Medical History Trochanteric bursitis, left hip Medical History Hip pain, left Medical History Antalgic gait Medical History Fatigue Medical History Pernicious anemia Medical History 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 Medical History Hypercholesterolemia Surgical History hysterectomy Surgical History thymectomy/partial Surgical History bowel resection Surgical History hip arthroplasty Surgical History HIP REPLACEMENT Surgical History TOTAL HIP ARTHROPLASTY Surgical History THYROIDECTOMY, TOTAL Hospitalization History see surgical hx Hospitalization History leg swelling [facility] [employer] Other History general [facility] - [facility] Other History general Narrative - [facility]No[facility] [employer] Other Hospital course Narrative No data available for this section [facility] No data available for this section [facility] No data available for this section [facility] HospitalReason for referral (narrative)* Diagnostic Procedure Only (Routine) - Authorized Specialty Diagnoses / Procedures Referred By Berhane restrepo Referred To Contact XR IMAGING Diagnoses Pain in left hip Procedures XR HIP GENERAL 3V PELV/AP/LAT LEFT RADEX HIP UNILATERAL WITH PELVIS 2-3 VIEWS Rick Mckinney, [address] [place] [address] Xr Imaging Referral ID Status Reason Start Date Expiration Date Visits Requested Visits Authorized [id number] Authorized Auto-Generat ed Referral 11/19/2021 12/19/2022 1 1 [facility] (narrative)* Diagnostic Procedure Only (Routine) - Pending Review Specialty Diagnoses / Procedures Referred By Tevinac t Referred To Contact XR IMAGING Diagnoses Primary osteoarthritis of left hip Procedures XR HIP GENERAL 3V PELV/AP/LAT LEFT RADEX HIP UNILATERAL WITH PELVIS 2-3 VIEWS Rick Mckinney PA-C [address] [place] [address] Xr Imaging Referral ID Status Reason Start Date Expiration Date Visits Requested Visits Authorized [id number] Pending Review Auto-Generat ed Referral 11/15/2022 12/15/2023 1 1 [facility] for referral (narrative)* Diagnostic Procedure Only (Routine) - Pending Review Specialty Diagnoses / Procedures Referred By Contac t Referred To Contact US IMAGING Diagnoses Rupture of hip abductor tendon Procedures US HIP LEFT US COMPL JOINT R-T W/IMAGE DOCUMENTATION Rick Mckinney PA-C [address] [place] [address] Us Imaging Referral ID Status Reason Start Date Expiration Date Visits Requested Visits Authorized [id number] Pending Review Auto-Generat ed Referral 11/20/2022 12/20/2023 1 1 [facility] for referral (narrative)* Diagnostic Procedure Only (Routine) - Closed Specialty Diagnoses / Procedures Referred By Contac t Referred To Contact XR IMAGING Diagnoses Pain in left hip Procedures XR HIP GENERAL 3V PELV/AP/LAT LEFT RADEX HIP UNILATERAL WITH PELVIS 2-3 VIEWS Rick Mckinney PA-C [address] [place] [address] Xr Imaging Referral ID Status Reason Start Date Expiration Date V isits Requested Visits Authorized [id number] Closed Auto-Generate d Referral 11/19/2021 12/19/2022 1 1 [facility] for visit Narrative* Diagnostic Procedure Only (Routine) - Closed Specialty Diagnoses / Procedures Referred By Contac t Referred To Contact XR IMAGING Diagnoses Pain in left hip Procedures XR HIP GENERAL 3V PELV/AP/LAT LEFT RADEX HIP UNILATERAL WITH PELVIS 2-3 VIEWS Rick Mckinney, [address] [place] [address] Xr Imaging Referral ID Status Reason Start Date Expiration Date V isits Requested Visits Authorized [id number] Closed Auto-Generate d Referral 11/19/2021 12/19/2022 1 1 [facility] Advance Directives No Advanced Directives Records FoundDocuments on File Type Date Recorded Patient Lock Operator Expl anation Advance Directive(s) 03/18/2017 3:16 PM Advance Directive(s) 08/15/2015 11:41 AM Documents on File Type Date Recorded Patient Lock Operator Expl anation Advance Directive(s) 03/18/2017 3:16 PM Advance Directive(s) 08/15/2015 11:41 AM Documents on File Type Date Recorded Patient Lock Operator Expl anation Advance Directive(s) 08/15/2015 11:41 AM Documents on File Type Date Recorded Patient Lock Operator Expl anation Advance Directive(s) 08/15/2015 11:41 AM Advance Directive Response Recorded Date/ Time Advance Directives No January 8:22am Summary Purpose Family History No Family History Records Found Relationship Condition Age at Onset Recorded Date/T william brother Unknown daughter History of ovarian cancer Unknown Malignant neoplasm Unknown father Unknown Not Specified Unknown Chief Complaint and Reason for Visit Chief Complaint 4 month follow up Reason for Visit Chronic kidney disea se Elevated BP without diagnosis of hypertension Elevated cholesterol GERD (gastroesophageal reflux disease) Hypoparathyroidism Hypothyroid Lumbar spondylosis Major depression Additional Source Comments Source Comments (unrecognize d section and content) In the event this informatio n is protected by the Federal Confidentiality of Alcohol and Drug Abuse Patient Records regulations: The Federal rules restrict any use of the information to criminally investigate or prosecute any alcohol or drug abuse patient.[facility] HospitalIn the event this information is protected by the Federal Confidentiality of Alcohol and Drug Abuse Patient Records regulations: The Federal rules restrict any use of the information to criminally investigate or prosecute any alcohol or drug abuse patient.[facility] HospitalIn the event this information is protected by the Federal Confidentiality of Alcohol and Drug Abuse Patient Records regulations: The Federal rules restrict any use of the information to criminally investigate or prosecute any alcohol or drug abuse patient.[facility] HospitalIn the event this information is protected by the Federal Confidentiality of Alcohol and Drug Abuse Patient Records regulations: The Federal rules restrict any use of the information to criminally investigate or prosecute any alcohol or drug abuse patient.[facility] HospitalIn the event this information is protected by the Federal Confidentiality of Alcohol and Drug Abuse Patient Records regulations: The Federal rules restrict any use of the information to criminally investigate or prosecute any alcohol or drug abuse patient.[facility] HospitalIn the event this information is protected by the Federal Confidentiality of Alcohol and Drug Abuse Patient Records regulations: The Federal rules restrict any use of the information to criminally investigate or prosecute any alcohol or drug abuse patient.[facility] HospitalIn the event this information is protected by the Federal Confidentiality of Alcohol and Drug Abuse Patient Records regulations: The Federal rules restrict any use of the information to criminally investigate or prosecute any alcohol or drug abuse patient.[facility] HospitalIn the event this information is protected by the Federal Confidentiality of Alcohol and Drug Abuse Patient Records regulations: The Federal rules restrict any use of the information to criminally investigate or prosecute any alcohol or drug abuse patient.[facility] HospitalIn the event this information is protected by the Federal Confidentiality of Alcohol and Drug Abuse Patient Records regulations: The Federal rules restrict any use of the information to criminally investigate or prosecute any alcohol or drug abuse patient.[facility] HospitalIn the event this information is protected by the Federal Confidentiality of Alcohol and Drug Abuse Patient Records regulations: The Federal rules restrict any use of the information to criminally investigate or prosecute any alcohol or drug abuse patient.[facility] HospitalIn the event this information is protected by the Federal Confidentiality of Alcohol and Drug Abuse Patient Records regulations: The Federal rules restrict any use of the information to criminally investigate or prosecute any alcohol or drug abuse patient.[facility] the event this information is protected by the Federal Confidentiality of Alcohol and Drug Abuse Patient Records regulations: The Federal rules restrict any use of the information to criminally investigate or prosecute any alcohol or drug abuse patient.[facility] Reason for Visit (unrecogniz ed section and content) Reason Comments New Patient Reason Comments Radiology XR Reason Comments Results Remote left acebaula r fracture Reason Onset Date Comments Refill Request 03/25/2022 Reason Comments Appointment Reason Comments Refill Request Care Teams (unrecognized sec tion and content) Life Skills Coach Relationship Specialty Start [place] [address] PCP - General 04/27/02 Wilbur Baldwin MD [address] [place] [address]85 Home Care Physician Orthopedics 08/11/15 Wilbur Baldwin MD [address] [place] [address] 11918 Referring Orthopedics 08/11/15 Jorge Moon MD [address] [place] [address] Primary Staff Physician Cardiology 08/11/18 Life Skills Coach Relationship Specialty Start Date End Date Free SoilMaliadaniel Gautam [address] [place] [address] PCP - General 04/27/02 Wilbur Baldwin MD [address] [place] [address] 69906 Home Care Physician Orthopedics 08/11/15 Wilbur Baldwin MD [address] [place] [address] 61291 Referring Orthopedics 08/11/15 Jorge Moon MD [address] [place] [address] Primary Staff Physician Cardiology 08/11/18 Life Skills Coach Relationship Specialty Start Date End Date MesserAngelica jesus [address] [place] [address] PCP - General 04/27/02 Wilbur Baldwin MD [address] [place] [address] 99200 Home Care Physician Orthopedics 08/11/15 iWlbur Baldwin MD [address] [place] [address] 90124 Referring Orthopedics 08/11/15 Jorge Moon MD [address] [place] [address] Primary Staff Physician Cardiology 08/11/18 Life Skills Coach Relationship Specialty Start Date End Date MesserAngelica greenfield [address] [place] [address] (Fax) PCP - General 04/27/02 Wilbur Baldwin MD [address] [place] [address] 80293 Home Care Physician Orthopedics 08/11/15 Wilbur Baldwin MD [address] [place] [address] 69929 Referring Orthopedics 08/11/15 Jorge Moon MD [address] [place] [address] Primary Staff Physician Cardiology 08/11/18 Life Skills Coach Relationship Specialty Start Date End Date Malia Messerdaniel Gautam [address] [place] [address] (Fax) PCP - General 04/27/02 Wilbur Baldwin MD [address] [place] [address] 26779 Home Care Physician Orthopedics 08/11/15 Wilbur Baldwin MD [address] [place] [address] 79953 Referring Orthopedics 08/11/15 Jorge Moon MD [address] [place] [address] Primary Staff Physician Cardiology 08/11/18 Life Skills Coach Relationship Specialty Start Date End Date Moe Angelica Gautam [address] [place] [address] (Fax) PCP - General 04/27/02 Wilbur Baldwin MD [address] [place] [address] 89908 Home Care Provider Orthopedics 08/11/15 Wilbur Baldwin MD [address] [place] [address] 75649 Referring Orthopedics 08/11/15 Jorge Moon MD [address] [place] [address] Primary Staff Physician Cardiology 08/11/18 Arslan Berg, DO [address] [place] [address] Referring Internal Medicine 03/03/22 Life Skills Coach Relationship Specialty Start Date End Date MesserAngelica greenfield [address] [place] [address] PCP - General 04/27/02 Wilbur Baldwin MD [address] [place] [address] 65991 Home Care Provider Orthopedics 08/11/15 Wilbur Baldwin MD [address] [place] [address] 60899 Referring Orthopedics 08/11/15 Jorge Moon MD [address] [place] [address] Primary Staff Physician Cardiology 08/11/18 Arslan Berg, DO [address] [place] [address] Referring Internal Medicine 03/03/22 Life Skills Coach Relationship Specialty Start Date End Date Angelica Messer D[address] [place] [address] PCP - General 04/27/02 Wilbur Baldwin MD [address] [place] [address] [phone] Home Care Provider Orthopedics 08/11/15 Wilbur Baldwin MD [address] [place] [address] 94321 Referring Orthopedics 08/11/15 Jorge Moon MD [address] [place] [address] Primary Staff Physician Cardiology 08/11/18 Arslan Berg, DO [address] [place] [address] Referring Internal Medicine 03/03/22 Life Skills Coach Relationship Specialty Start Date End Date MesserMaliaan Dain [address] [place] [address] PCP - General 04/27/02 Wilbur Baldwin MD [address] [place] [address] 94657 Home Care Provider Orthopedics 08/11/15 Wilbur Baldwin MD [address] [place] [address] 06261 Referring Orthopedics 08/11/15 Jorge Moon MD [address] [place] [address] Primary Staff Physician Cardiology 08/11/18 Arslan Berg, DO [address] [place] [address] Referring Internal Medicine 03/03/22 Life Skills Coach Relationship Specialty Start Date End Date MesserAngelica [address] [place] [address] PCP - General 04/27/02 Wilbur Baldwin MD [address] [place] [address] 96475 Home Care Provider Orthopedics 08/11/15 Wilbur Baldwin MD [address] [place] [address] 58433 Referring Orthopedics 08/11/15 Jorge Moon MD [address] [place] [address] Primary Staff Physician Cardiology 08/11/18 Life Skills Coach Relationship Specialty Start Date End Date Angelica Messer [address] [place] [address] PCP - General 04/27/02 Wilbur Baldwin MD [address] [place] [address] 82349 Home Care Provider Orthopedics 08/11/15 Wilbur Baldwin MD [address] [place] [address] 80823 Referring Orthopedics 08/11/15 Jorge Moon MD [address] [place] [address] Primary Staff Physician Cardiology 08/11/18 Arslan Berg DO [address] [place] [address] Referring Internal Medicine 03/03/22 Team Status: Active Member Role Status Dates Angelica Messer MD Primary Care Provider Active Team Status: Inactive Member Role Status Dates Angelica Messer MD Primary Care Provider Active Start: September 02, 2023 End: September 02, 2023 Arslan Berg DO Attending Provider Active Sta rt: September 02, 2023 End: September 02, 2023 INFORMATION SOURCE (unrecogn ized section and content) DATE CREATED AUTHOR 02/20/2022 [facility] DATE CREATED AUTHOR AUTHOR'S ORGANIZ ATION 08/07/2022 [facility] DATE CREATED AUTHOR AUTHOR'S ORGANIZ ATION 01/08/2023 [facility] DATE CREATED AUTHOR AUTHOR'S ORGANIZ ATION 09/27/2023 [facility] DATE CREATED AUTHOR AUTHOR'S ORGANIZ ATION 09/27/2023 [facility] EPIC Goals (unrecognized section and content) Goals may be documented in a n alternate section FOR RECORDS PERTAINING TO PATIENTS WHO ARE OR HAVE BEEN ENROLLED IN A CHEMICAL DEPENDENCY/SUBSTANCEABUSE PROGRAM, SOME INFORMATION MAY BE OMITTED. This clinical summary was aggregated from multiple sources. Caution should be exercised in using it in the provision of clinical care. This summary normalizes information from multiple sources, and as a consequence, information in this document may materially change the coding, format and clinical context of patient data. In addition, data may be omitted in some cases. CLINICAL DECISIONS SHOULD BE BASED ON THE PRIMARY CLINICAL RECORDS. [facility]. provides no warranty or guarantee of the accuracy or completeness of information in this document.
== END 2023-10-01 09:16 | disposition home or self-care (01) ==
LOC: CARD 09:15
PROVIDERS: PCP Internal Medicine; Visit Provider Internal Medicine
DX: G45.9 Transient cerebral ischemic attack, unspecified (principal)
CPT/HCPCS: 93246

== ENCOUNTER 2023-11-05 09:57 | Outpatient (OUT) | payer OTHER, SELFPAY ==
[2023-11-05 11:40] LABS: Albumin Level 3.2 g/dL (3.4-5.0); Anion Gap 12.3; BUN Creatinine Ratio 17.3; Calcium 7.2 mg/dL (8.5-10.1); Carbon Dioxide 26.9 mmol/L (21.0-32.0); Chloride 105 mmol/L (98-107); Estimated GFR (African America 46 (>=60); Estimated GFR (Non-African Ame 38 (>=60); Glucose 90 mg/dL (74-106); Phosphorus 4.2 mg/dL (2.6-4.7); Potassium 4.2 mmol/L (3.5-5.1); Sodium 140 mmol/L (136-145); Thyroid Stimulating Hormone 3.855 uIU/mL (0.358-3.740)
== END 2023-11-05 09:58 | disposition home or self-care (01) ==
LOC: LAB 09:58
PROVIDERS: PCP Internal Medicine
DX: E89.0 Postprocedural hypothyroidism (principal); E89.2 Postprocedural hypoparathyroidism
CPT/HCPCS: 36415; 80069; 82306; 84443